=== PATIENT | female | born 1945 | race Caucasian/White ===

== ENCOUNTER 2020-09-29 10:48 | Outpatient (REF) | payer MEDICARE, SELFPAY ==
--- NOTE | ~2020-09-29 | MM_ITS ---
EXAMINATION: MM SCREENING DIGITAL BREAST TOMOSYNTHESIS, BILATERAL CLINICAL INFORMATION: Screening. Asymptomatic. The lifetime risk of breast cancer based on the Tyrer-Cuzick Model is 3%. COMPARISON: Mammography: 06/23/2019, 02/15/2018, 10/12/2016, 05/25/2015 TECHNIQUE: Digital breast tomosynthesis is performed in both the craniocaudal and mediolateral oblique views along with computer-aided detection (CAD). Synthesized 2D images are generated from the tomosynthesis. Additional left MLO view is provided. FINDINGS: There are scattered areas of fibroglandular density (ACR BI-RADS breast composition Category b). There is fine fibronodular parenchymal pattern with stable parenchymal asymmetry upper outer right breast and stable nodule upper outer right breast. No significant mass or developing density or abnormal calcifications. Low right axillary tail nodes stable. Skin contours are smooth. There are no significant changes from prior exams. MM/MM tomosynthesis screening BI IMPRESSION: No significant changes from prior exams. ASSESSMENT: BI-RADS 2: Benign RECOMMENDATION: Routine annual mammography screening. This patient's information was entered into a reminder system with a target due date for their next mammogram.
== END 2020-09-29 10:49 | disposition home or self-care (01) ==
LOC: HO.MAMMO 10:48
PROVIDERS: PCP Internal Medicine; Visit Provider Internal Medicine
DX: Z12.31 Encounter for screening mammogram for malignant neoplasm of breast (principal)
CPT/HCPCS: 77063; 77067

== ENCOUNTER 2021-10-24 11:48 | Outpatient (REF) | payer MEDICARE, SELFPAY ==
--- NOTE | ~2021-10-24 | MM_ITS ---
EXAMINATION: MM SCREENING DIGITAL BREAST TOMOSYNTHESIS, BILATERAL CLINICAL INFORMATION: Screening. Asymptomatic. The lifetime risk of breast cancer based on the Tyrer-Cuzick Model is 2.4%. COMPARISON: Mammography: September 29, 2020 and studies dating back to April 28, 2014 TECHNIQUE: Digital breast tomosynthesis is performed in both the craniocaudal and mediolateral oblique views along with computer-aided detection (CAD). Synthesized 2D images are generated from the tomosynthesis. FINDINGS: There are scattered areas of fibroglandular density (ACR BI-RADS breast composition Category b). There are no significant masses, abnormal calcifications, or other abnormalities. MM/MM tomosynthesis screening BI IMPRESSION: There are no significant changes from prior study. ASSESSMENT: BI-RADS 1: Negative RECOMMENDATION: Routine annual mammography screening. This patient's information was entered into a reminder system with a target due date for their next mammogram.
== END 2021-10-24 11:49 | disposition home or self-care (01) ==
LOC: HO.MAMMO 11:48
PROVIDERS: PCP Internal Medicine; Visit Provider Internal Medicine
DX: Z12.31 Encounter for screening mammogram for malignant neoplasm of breast (principal)
CPT/HCPCS: 77063; 77067

== ENCOUNTER 2022-10-26 10:32 | Outpatient (REF) | payer MEDICARE, SELFPAY ==
--- NOTE | ~2022-10-26 | MM_ITS ---
EXAMINATION: MM SCREENING DIGITAL BREAST TOMOSYNTHESIS, BILATERAL CLINICAL INFORMATION: Screening. Asymptomatic. The lifetime risk of breast cancer based on the Tyrer-Cuzick Model is 2%. COMPARISON: Mammography: 10/24/2021, 09/29/2020, 06/23/2019, 02/15/2018, 10/13/1916, 05/25/2015 TECHNIQUE: Digital breast tomosynthesis is performed in both the craniocaudal and mediolateral oblique views along with computer-aided detection (CAD). Synthesized 2D images are generated from the tomosynthesis. FINDINGS: There are scattered areas of fibroglandular density (ACR BI-RADS breast composition Category b). There are no significant masses, abnormal calcifications, or other abnormalities. Parenchymal pattern is similar to prior studies and there is no developing density or architectural abnormality. Again, there is fine fibronodular pattern with stable nodular asymmetry mid upper outer right breast. Low right axillary tail nodes stable. The axilla and skin contours are unremarkable. No significant changes from prior studies. MM/MM tomosynthesis screening BI IMPRESSION: No mammographic evidence of malignancy. ASSESSMENT: BI-RADS 2: Benign RECOMMENDATION: Routine annual mammography screening. This patient's information was entered into a reminder system with a target due date for their next mammogram.
== END 2022-10-26 10:33 | disposition home or self-care (01) ==
LOC: HO.MAMMO 10:32
PROVIDERS: PCP Internal Medicine; Visit Provider Internal Medicine
DX: Z12.31 Encounter for screening mammogram for malignant neoplasm of breast (principal)
CPT/HCPCS: 77063; 77067

== ENCOUNTER 2023-11-01 10:32 | Outpatient (REF) | payer MEDICARE, SELFPAY | END 2023-11-01 10:33 | disposition home or self-care (01) | LOC: HO.MAMMO 10:32 | PROVIDERS: Visit Provider Internal Medicine | DX: Z12.31 Encounter for screening mammogram for malignant neoplasm of breast (principal) | CPT/HCPCS: 77063; 77067 ==

== ENCOUNTER → 2023-11-01 10:45 | Outpatient (BNV) | payer MEDICARE, SELFPAY | PROVIDERS: Visit Provider Radiology Diagnostic Radiology | DX: Z12.31 Encounter for screening mammogram for malignant neoplasm of breast (principal) | CPT/HCPCS: 77063; 77067 ==

== ENCOUNTER 2024-09-24 10:48 | Outpatient (REF) | payer MEDICARE, SELFPAY ==
--- NOTE | ~2024-09-24 | MM_ITS ---
EXAMINATION: DXA BONE DENSITY AXIAL HISTORY: POSTMENOPAUSAL ESTROGEN DEFICIENCY TECHNIQUE: GiveForward Dual energy absorptiometry (DEXA) of the lumbar spine, total left hip, and femoral neck was performed. COMPARISON: Comparison is made with the prior examination dated 10/03/2018. FINDINGS: The bone mineral density of the lumbar spine is 0.992 with a T-score of -1.6, and a Z-score of 0.0. This is indicative of osteopenia. This represents a BMD change of -2.4% compared to the prior exam. This is not statistically significant. The bone mineral density of the left total hip is 1.065 with a T-score of 0.5, and a Z-score of 2.2. This is indicative of normal bone mineral density. This represents a BMD change of -4.0% compared to the prior exam. This is statistically significant. The bone mineral density of the left femoral neck is 0.965 with a T-score of -0.5, and a Z-score of 1.4. This is indicative of normal bone mineral density. This represents a BMD change of 5.8% compared to the prior exam. FRACTURE RISK: The FRAX index suggests a ten year probability of major osteoporotic fracture of 9.4%, and of hip fracture 1.3%. MM/XR DEXA axial skeleton IMPRESSION: Based on bone mineral density, and according to World Health Organization (WHO) criteria, the diagnosis is consistent with osteopenia. All bone density values are in grams per centimeter squared (g/cm2). Statistically, 68% of repeat scans fall within 1 SD (+/- 0.010 g/cm2 for AP spine L1-L4) and 1 SD (+/- 0.012 g/cm2 for femur total) FRAX is a trademark of the [employer]'s [employer] Met[employer], a World Health Organization (WHO) Collaborating Center. Electronically signed by: Jamal Paulson MD 09/24/2024 11:32 AM EDT
--- OUTSIDE RECORDS SUMMARY | 2024-09-24 12:24 | XMS_ITS | Encounter Summary ---
Author Organization [facility] Address [address] [facility] [address] [place] [phone] Phone Care Team Providers Care Airport Screener Name Role Phone Ian Dickey MD Unavailable [phone] Ian Dickey MD Unavailable [phone] Ian Dickey MD Primary Care Provider [phone] Encounter Details Date Type Department Care Team (Late st Contact Info) Description 09/24/2024 Orders Only [facility] Internal Medicine [address] [place] [address] Provider, MD Mirta [address] [place], [place] [id number] Social History Tobacco Use Types Packs/Day Years Used Date Smoking Tobacco: Never Smokeless Tobacco: Never Alcohol Use Standard Drinks/Week Comments Not Currently 0 (1 standard drink = 0.6 oz pur e alcohol) in her 20s Education Answer Date Recorded Are you interested in more education? Not on darian e 2022 Are you concerned about learning? Not on file 2022 No 2022 No 2022 Digital Access Answer Date Recorded No 10/22/2022 No 10/22/2022 Reliable internet access at home? Not on file 10/22/2022 Device with a working camera? Not on file Intimate Partner Violence Answer Date R ecorded Denied Basic Needs Not on file 03/25/2024 In the past 12 months have y ou been in a relationship with a person who hurts, threatens, or tries to control you? No 03/25/2024 Worried food would run out Not on file 03/25 In the past 12 months have y ou been in a relationship with a person who hurts, threatens, or tries to control you? No 03/25/2024 Sex and Gender Information Value Date Recorded Sex Assigned at Female 01/25/2020 11:17 AM EDT Gender Identity Female 01/25/2020 11:17 AM EDT Sexual Orientation Straight 01/25/2020 11 :17 AM EDT documented as of this encounter Plan of Treatment Upcoming Encounters Date Type Department Care Team (Late st Contact Info) Description 10/05/2024 1:00 PM EDT Appointment [facility] Internal Medicine [address] [place] [address] Ian Dickey MD [address] [place] [phone] [email or web address] documented as of this encounter Procedures Procedure Name Priority Date/Time Associated Diagnosis Comments MAMMOGRAPHY Routine 09/24/2024 11:56 AM EDT documented in this encounter Results * MAMMOGRAPHY FOR RESULT ENTRY ONLY (09/24/2024 11:56 AM EDT) Historical Provider MD ESTELLE Jolly documented in this encounter Visit Diagnoses Not on filedocumented in this encounter Additional Health Concerns Assessment Noted Time PHQ-2 Depression Total Score: 0 03/25/20 24 9:15 PM EDT documented as of this encounter Care Teams Airport Screener Relationship Specialty Start Date End Date Ian Dickey MD [address] [place] [phone] PCP - General Internal Medicine 04/22/17 Ian Dickey MD [address] [place] [address] Insurance Assigned Provider 08/31/23 Ian Dickey MD [address] [place] [address] [email or web address] Historical LMR Provider 03/17/17 documented as of this encounter Additional Source Comments The information contained in this document represents components of the legal health record. It is not the complete legal health record.[facility]
--- OUTSIDE RECORDS SUMMARY | 2024-09-24 12:25 | XMS_ITS | Clinical Summary ---
Author Organization [facility] Address [address] [place] [address] Phone Care Team Providers Care Body Maker Machine Setter Name Role Phone Ian Dickey MD Unavailable [phone] Ian Dickey MD Unavailable [phone] Ian Dickey MD Primary Care Provider [phone] Allergies Active Allergy Reactions Criticality Noted Date Comments 0.9 % Sodium Chloride (Phenol) 09/17 Meperidine Nausea and/or Vomiting 04/22/2017 Sulfa (Sulfonamide Antibiotics) Unknown 04/22/2017 Medications Medication Sig Dispensed Refills Start Date End Date Status amitriptyline (ELAVIL) 25 MG tablet 1 tablet at bedtime Active biotin 1 mg tablet Take 1 mg by mouth daily. Active flaxseed oil Oil Take 1 capsule by mouth daily. Active multivitamin per tablet Take 1 tablet by mouth daily. Active L GASSERI/B BIFIDUM/B LONGUM ([facility] ORAL) Take 1 capsule by mouth daily. Active senna (SENOKOT) 8.6 mg tablet Take 1 tablet by mouth daily as needed. Active cyanocobalamin, vitamin B-12, 1000 MCG tablet Take 1,000 mcg by mouth daily. Active ascorbic acid, vitamin C, (VITAMIN C) 500 MG tablet Take 500 mg by mouth daily. Active DULoxetine (CYMBALTA) 30 MG capsule Take 30 mg by mouth daily. Taken along with 60 mg (total 90 mg daily). Active LORazepam (ATIVAN) 0.5 MG tablet Take 0.5 mg by mouth daily as needed for anxiety. 07/17/2019 Active zolpidem (AMBIEN) 10 mg tablet Take 10 mg by mouth nightly at bedtime. 07/16/2019 Active DULoxetine (CYMBALTA) 60 MG capsule Take 1 capsule by mouth daily. Taken along with 30 mg (total 90 mg daily). 11/04/2019 Active propranoloL (INDERAL LA) 120 mg 24 hr capsule Take 120 mg by mouth daily. Active omega-3 acid ethyl esters (LOVAZA) 1 gram capsuleIndications :Hyperglyceridemia Take 2 capsules (2 g total) by mouth 2 (two) times a day. 120 capsule 5 09/23/2022 Active Additional Information Patient not taking.Reported on 09/20/2023 acetaminophen (TYLENOL EX STR RAPID RELEASE ORAL) Take 2 tablets by mouth every other day. Alternating with tylenol arthritis Active lansoprazole (PREVACID) 30 MG capsuleIndications :Gastroesophageal reflux disease without esophagitis take 1 capsule by mouth twice daily 180 capsule 3 02/11/2024 Active acetaminophen (TYLENOL) 650 MG CR tablet Take 1,300 mg by mouth every other day. Alternating with rapid release tylenol Active icosapent ethyL (VASCEPA) 1 gram capsuleIndications :Hyperglyceridemia Take 2 capsules (2 g total) by mouth 2 (two) times a day with meals. 360 capsule 3 08/24/2024 Active Active Problems Problem Noted Date Diagnosed Date MS (multiple sclerosis) 08/01/2018 Overview (08/01/2018): Dr. Stephen S/P YAMILET-BSO 08/01/2018 Constipation 04/22/2017 Gastroesophageal reflux disease 04/22/2017 Hyperlipidemia 04/22/2017 Migraine without aura and wi thout status migrainosus, not intractable 04/22/2017 Nocturia 04/22/2017 Encounters Date Type Department Care Team Description 09/24/2024 Orders Only [facility] Internal Medicine [address] [facility] [place] [address] ProviderMirta MD 09/18/2024 Telephone [facility] Internal Medicine [address] [facility] [place] [address] Ian Dickey MD New bone density order 08/24/2024 Telephone [facility] Internal Medicine [address] [place] [address] Ian Dickey MD Medication Prior Authorization (VASCEPA 1 gram capsule) from Last 3 Months Immunizations Name Administration Dates Next Due COVID-19 (Pre-03/18) Suresh Vaccine, rS-Ad26, PF 08/04/2020 COVID-19 (Pre-03/18) Pfizer Vaccine, mRNA, PF 03/23/2021 Influenza High-Dose Quadriva lent Preservative Free IM 02/01/2022,01/12/2020 Influenza High-Dose Trivalen t Preservative Free IM 02/11/2024,01/20/2018,02/05/2017,01/23,02/18/2015 Influenza Quadrivalent Adjuv anted Preservative Free IM 02/20/2023,02/02/2021 Influenza Trivalent Adjuvant ed Preservative free IM 02/10/2019 Influenza Trivalent w/ Preservative IM 7 Influenza, Unspecified Formulation 02/10,02/14/2011,02/22/2010,03/03 Pneumococcal conjugate PCV13 08/23/2015 Pneumococcal polysaccharide PPSV23 08/01/2018, RSV Vaccine (monovalent, adjuvanted) 03/06/2023 Td (adult) 5 Lf Tetanus Toxo id, PF, Adsorbed 08/30/2016,04/26/2006 Zoster recombinant 11/03/2019,08/04/2019, 019 Family History Medical History Relation Comments Cancer Brother 1 Alcohol abuse Father Relation Status Comments Brother 1 (Age 50) cancer Brother 2 Alive Brother 3 Alive Father (Age 62) Mother (Age 92) Sister 1 Alive Sister 2 Alive Sister 3 Alive Sister 4 Alive Sister 5 Alive Sister 6 Alive Sister 7 Alive Social History Tobacco Use Types Packs/Day Years Used Date Smoking Tobacco: Never Smokeless Tobacco: Never Tobacco Cessation:Counseling Given: Not Answered Alcohol Use Standard Drinks/Week Comments Not Currently [...] Orientation Straight 01/25/2020 11 :17 AM EDT Last Filed Vital Signs Vital Sign Reading Time Taken Comments Blood Pressure 136/73 03/31/2024 10:52 AM EST Pulse 77 03/31/2024 10:52 AM EST Temperature 36.6 ??C (97.9 ??F) 03/31/2024 10:[address] Respiratory Rate 16 03/31/2024 10:52 AM EST Oxygen Saturation 97% 03/31/2024 10:52 AM EST Inhaled Oxygen Concentration - - Weight 72.4 kg (159 lb 9.6 oz) 03/31/2024 10:52 AM EST Height 158.5 cm (5' 2.4 ) 03/31/2024 10:52 AM ES T Body Mass Index 28.82 03/31/2024 10:52 AM EST Plan of Treatment Upcoming Encounters Date Type Department Care Team (Late st Contact Info) Description 10/05/2024 1:00 PM EDT Appointment [facility] [place] Internal Medicine [address] [place] [address] Ian Dickey MD [address] [place] [address] [email or web address] Health Maintenance Due Date Last Done Comments DEPRESSION SCREENING 03/25/2025 03/25/2024 Adult Td,Tdap Booster 08/30/2026 08/30/2016, 006 LIPID PANEL 09/02/2028 09/03/2023, 11/2022, 05/02/2023, Additional history exists FOLLOW UP BONE DENSITY TESTING 09/18/2029 09/18/2024, 03/31/2024, 09/20/2023, Additional history exists PNEUMOCOCCAL VACCINES (50+ years) Completed 08/01/2018, 08/23/2015, 03/27/2008 HEPATITIS C SCREENING Completed 08/27/2018, 019 ZOSTER VACCINES Completed 11/03/2019, 07/25, 02/10/2019 RSV VACCINE Completed 03/06/2023 COVID-19 VACCINE Completed 02/11/2024, , 02/20/2023, Additional history exists SMOKING STATUS SCREENING (Once After 26 Yrs) Completed 03/31/2024 OSTEOPOROSIS SCREENING INITIAL (ONE-TIME) Completed 09/18/2024, 03/31/2024, 09/20/2023, Additional history exists HEPATITIS A VACCINES Aged Out No long er eligible based on patient's age to complete this topic HIB VACCINES Aged Out No longer eligi ble based on patient's age to complete this topic MENINGOCOCCAL VACCINES (ACWY) Aged Out No longer eligible based on patient's age to complete this topic Medical Devices Not on file Procedures Procedure Name Priority Date/Time Associated Diagnosis Comments HM MAMMOGRAPHY Routine 09/24/2024 11:56 AM EDT BD DXA SCREENING Routine 09/18/2024 7:32 PM EDT Postmenopausal estrogen deficiency LIPID PANEL Routine 09/03/2023 11:22 AM EDT Hyperglyceridemia HEPATITIS C ANTIBODY, QUALITATIVE Routine 08/27/2018 10:28 AM EDT Need for hepatitis C screening test from Last 3 Months or Most Recently Relevant to Health Maintenance Results * HM MAMMOGRAPHY FOR RESULT ENTRY ONLY (09/24/2024 11:56 AM EDT) Historical Provider MD ESTELLE Jolly * (ABNORMAL) Lipid panel (09/03/2023 11:22 AM EDT) HDL 36 mg/dL [facility] Comment: ? Interpretation <40 mg/dL: Low HDL cholesterol (major risk factor for CHD) Greater than or equal to 60 mg/dL: High HDL cholesterol ( negative risk factor for CHD) HDL - cholesterol is affected by a number of factors, e.g. smoking, excerise, hormones, sex and age. CHOLESTEROL 269(H) 0 - 240 mg/dL [facility] TRIGLYCERIDES 553(H) 30 - 160 mg/dL [facility] LDL NOT CALCULATED 50 - 129 mg/dL [facility] Comment: Unable to calculate due to elevated TRIG of greater than 400. A measured LDL will be performed. CARDIAC RISK RATIO 7.5(H) 3.3 - 4.4 [facility] Blood 09/03/2023 11:2 2 AM EDT 09/03/2023 11:23 AM EDT Ian Dickey MD LAB BLOOD ORDERABLES Performing Organization Address [facility] Co de Phone Number [address] [address] * DXA Monitoring (10/03/2018) Anatomical Region Laterality Modality Bone Density Bone Density Ian Dickey MD IMG BD BONE DENSITY DEXA * Hepatitis C antibody, qualitative (08/27/2018 10:28 AM EDT) HCV Negative Negative [facility] Comment: This is a screening test and should be confirmed with molecular testing Blood 08/27/2018 10:2 8 AM EDT 08/27/2018 10:32 AM EDT Ian Dickey MD LAB BLOOD ORDERABLES Performing Organization Address [facility] Co de Phone Number [address] [address] from Last 3 Months or Most Recently Relevant to Health Maintenance Care Teams Body Maker Machine Setter Relationship Specialty Start Date End Date Ian Dickey MD [address] [place] [id number] [email or web address] PCP - General Internal Medicine 04/22/17 Ian Dickey MD [address] [place] [address] [email or web address] Insurance Assigned Provider 08/31/23 Ian Dickey MD [address] [place] [address] [email or web address] Historical LMR Provider 03/17/17 Additional Source Comments The information contained in this document represents components of the legal health record. It is not the complete legal health record.[facility]
--- OUTSIDE RECORDS SUMMARY | 2024-09-24 12:25 | XMS_ITS | Encounter Summary ---
Author Organization [facility] Address [address] [address] Phone Care Team Providers Care Surgical First Assistant Name Role Phone Ian Dickey MD Unavailable [phone] Ian Dickey MD Unavailable [phone] Ian Dickey MD Primary Care Provider [phone] Encounter Details Date Type Department Care Team (Late st Contact Info) Description 12/16/2023 Transcribe Orders [facility] Specimen Processing [address] [place] [address] Ian Dickey MD [address] [place] [address] [email or web address] Social History Tobacco Use Types Packs/Day Years [...] with a working camera? Not on file Sex and Gender Information Value Date Recorded Sex Assigned at Female 01/25/2020 11:17 AM EDT Gender Identity Female 01/25/2020 11:17 AM EDT Sexual Orientation Straight 01/25/2020 11 :17 AM EDT documented as of this encounter Plan of Treatment Upcoming Encounters Date Type Department Care Team (Late st Contact Info) Description 10/05/2024 1:00 PM EDT Appointment [facility] Internal Medicine [address] [place] [address] Ian Dickey MD [address] [place] [address] documented as of this encounter Visit Diagnoses Not on filedocumented in this encounter Additional Health Concerns Assessment Noted Time PHQ-2 Depression Total Score: 0 03/14/20 23 6:48 PM EDT documented as of this encounter Care Teams Surgical First Assistant Relationship Specialty Start Date End Date Ian Dickey MD [address] [place] [address] PCP - General Internal Medicine 04/22/17 Ian Dickey MD [address] [place] [address] Insurance Assigned Provider 08/31/23 Ian Dickey MD [address] [place] [address] Historical LMR Provider 03/17/17 documented as of this encounter Additional Source Comments The information contained in this document represents components of the legal health record. It is not the complete legal health record.[facility]
== END 2024-09-24 10:49 | disposition home or self-care (01) ==
LOC: HO.MAMMO 10:48
PROVIDERS: PCP Internal Medicine; Visit Provider Internal Medicine
DX: Z13.820 Encounter for screening for osteoporosis (principal); Z78.0 Asymptomatic menopausal state
CPT/HCPCS: 77080

== ENCOUNTER → 2024-09-24 11:00 | Outpatient (BNV) | payer MEDICARE, SELFPAY | PROVIDERS: PCP Internal Medicine; Visit Provider Radiology Diagnostic Radiology | DX: E28.39 Other primary ovarian failure (principal) | CPT/HCPCS: 77080 ==

== ENCOUNTER 2024-10-20 13:40 | Outpatient (REF) | payer MEDICARE, SELFPAY ==
--- NOTE | ~2024-10-20 | XR_ITS ---
EXAMINATION: XR HIP, RIGHT CLINICAL INFORMATION: arthritis right hip COMPARISON: None available. TECHNIQUE: Two views of the right hip. FINDINGS: No fracture, dislocation, or suspicious bone lesion. There is normal alignment. There is moderate osteoarthritis within the right hip joint, with subcapital spurring, axial joint space narrowing, superolateral acetabular spurring, and mild subchondral sclerosis and cystic changes. There is mild spurring of the greater trochanter. Soft tissues demonstrate vascular calcifications but are otherwise normal. XR/XR hip RT min 2V IMPRESSION: 1. Moderate osteoarthrosis right hip joint. No acute findings. Electronically signed by: Jalen Han MD 10/20/2024 03:48 PM EDT
== END 2024-10-20 13:41 | disposition home or self-care (01) ==
LOC: HO.XRAY 13:40
PROVIDERS: PCP Internal Medicine; Visit Provider Psychiatry & Neurology Neurology
DX: M19.90 Unspecified osteoarthritis, unspecified site (principal)
CPT/HCPCS: 73502

== ENCOUNTER → 2024-10-20 13:50 | Outpatient (BNV) | payer MEDICARE, SELFPAY | PROVIDERS: PCP Internal Medicine; Visit Provider Radiology Diagnostic Radiology | DX: M16.11 Unilateral primary osteoarthritis, right hip (principal) | CPT/HCPCS: 73502 ==

== ENCOUNTER 2024-11-06 10:06 | Outpatient (REF) | payer MEDICARE, SELFPAY | END 2024-11-06 10:07 | disposition home or self-care (01) | LOC: HO.MAMMO 10:06 | PROVIDERS: PCP Internal Medicine; Visit Provider Internal Medicine | DX: Z12.31 Encounter for screening mammogram for malignant neoplasm of breast (principal) | CPT/HCPCS: 77063; 77067 ==

== ENCOUNTER → 2024-11-06 10:15 | Outpatient (BNV) | payer MEDICARE, SELFPAY | PROVIDERS: PCP Internal Medicine; Visit Provider Internal Medicine | DX: Z12.31 Encounter for screening mammogram for malignant neoplasm of breast (principal) | CPT/HCPCS: 77063; 77067 ==

== ENCOUNTER 2024-12-01 13:23 | Outpatient (AMB) | payer MEDICARE, SELFPAY ==
--- NOTE | 2024-12-01 13:38 | A.OFFVIS_ITS ---
Intake Visit Reasons: MS/ 6 WEEKS Allergies meperidine (From Demerol) Allergy (Verified 11/30/24 17:26) Unknown Sulfa (Sulfonamide Antibiotics) Allergy (Verified 11/30/24 17:26) Unknown Medication List - Last Reconciled 12/01/24 by Tara Stephen MD amitriptyline 25 mg PO BEDTIME duloxetine 30 mg PO DAILY fenofibrate nanocrystallized 145 mg PO DAILY icosapent ethyl 2 grams PO BID lorazepam 0.5 mg PO DAILY propranolol ER 120 mg PO DAILY zolpidem 10 mg PO BEDTIME PRN HPI Comments Details: No relief from Meloxicam. 4-5 months of constant RLE pain from sharp groin pain and buttock going down to foot. No injuries. 10/30/24 MRI LS spine shows L5-S1 right sided HNP with compression of right L5 rootalong with a disc free fragment with cephalad migration. XR right hip show smoderate OA She also has asymptomatic MS. MRI brain shows white matter disease that is probably chronic. Not sure of any enhancement because of artifact. Old MRI not available for comparison.? Left facial twitching happening on and off, few times a week and most often when laying down at night. No pain. She is not sure when facial twitching became more frequent. Few occasional headaches, but no migraines. Chronic low back pain. Having some right leg pain over the last few months which she describes as a nuisance, unsure if pain is radiating down leg from low back. Leg feels weaker. Off balance at times, no falls. Not walking as much. Sleep is okay with medication. Previously was getting infrequent left facial twitching. No pain. LBP acted up after doing lot of house work. No migraine headaches or muscle tension headaches. Not taking any migraine abortive therapy. Has position vertigo that occasionally needs repositioning. No side effects other than slight dry mouth from medication. MRIs in past have shown findings consistent with stable dem yelinating disease. Has not had any clinical symptoms to suggest MS. Last MRI of brain was 06/2007, showed moderate amount of chronic white matter changes which are nonspecific, in deep white matter predominantly in a periventricular distribution. [facility] Medical History (Updated 12/01/24 @ 13:48 by Tara Stephen MD) Diverticulosis Hip arthritis Insomnia Low back pain Depression Multiple sclerosis Migraine headache Surgical History (Updated 11/30/24 @ 17:24 by Macie Woods MA) History of lumbar surgery History of bladder suspension procedure History of hysterectomy Social History (Updated 11/30/24 @ 17:25 by Macie Woods MA) Patient Tobacco Use Status: Never used Tobacco Physical Exam Neuro Other: Neurological: Abnormal neurological findings:??none.?Mental Status:??alert and oriented X 3,?Normal attention, orientation, memory and affect.?Cranial Nerves:??Pupils are equal, round and reactive to light. Fundoscopy shows normal disc bilaterally. External occular muscles are intact. Visual farr are full, no ptosis. Face is symmetrical, no facial weakness or droop. Facial sensations are normal. Tongue protrudes in midline. Palate elevates symmetrically. Shoulder shrugging is normal..?Motor Examination:??Normal muscle tone, bulk and strength,?No atrophy or fasciculations,?No drift of the extended upper extremities,?Deep tendon reflexes are 2+?,?Plantars are flexor?.?Straight Leg Raising:??90 degrees.?Sensory Exam:??Normal light touch, temperature, pinprick, vibration and joint-position sensations?,?Rhomberg sign is absent.?Coordination:??no ataxia,?no titubation,?auxmup-gi-umda, asjg-fpqu-krem test and rapid alternating movements were normal.?Gait Exam:??Within normal limits.?Cerebellar Signs:??Wokuwa-ko-bczh and fdcg-tm-rlki is normal,?no dysdiadochokinesia?.?Extrapyramidal System:??No tremor, rigidity with normal facial expressions,?No bradykinesia, no bradyphrenia. Normal arm swing and posture. No propulsion or retropulsion.?Speech:??Normal,?no dysphasia or dysarthria..? General Examination: GENERAL APPEARANCE:??normal,?in no acute distress.?HEART:??S1, S2 normal,?no murmurs.?LUNGS:??clear anteriorly and posteriorly.?MUSCULOSKELETAL:??normal.?EXTREMITIES:??no edema.?PSYCH:??alert, oriented,?cognitive function intact,?cooperative with exam.? Mini Mental Status Exam: Level of Consciousness:??Alert.?Orientation:??Knows correct year, month, date, day and season,?Knows correct city, county and state. Knows correct location and floor.?Registration:??Able to register 3 objects.?Attention:??Serial 7's performed accurately.?Recall:??Able to recall 3 out of 3 objects.?Lang uage:??Normal spontaneous speech, fluency, repetition,naming, comprehension, reading and writing.?Total Score:??30/30.? Assessment & Plan Assessment & Plan (1) Lumbar disc herniation with radiculopathy: Code(s): M51.16 - Intervertebral disc disorders with radiculopathy, lumbar region Category: Medical Plan: Refer to Neurosurgery (2) Migraine headache: Comment: Continue current meds Code(s): G43.909 - Migraine, unspecified, not intractable, without status migrainosus Category: Medical (3) Multiple sclerosis: Code(s): G35 - Multiple sclerosis Category: Medical Plan Neurosurgical referral. Orders: Referrals Neurosurgery Referral M51.16 - Intervertebral disc disorders with radiculopathy, lumbar region Coding Level of Care Code Est Pt Level 4 (01696) Diagnoses Lumbar disc herniation with radiculopathy M51.16 Migraine headache G43.909 Multiple sclerosis G35
== END 2024-12-01 13:55 | disposition home or self-care (01) ==
LOC: HO.HSM 13:23
PROVIDERS: PCP Internal Medicine; Visit Provider Psychiatry & Neurology Neurology
DX: M51.16 Intervertebral disc disorders with radiculopathy, lumbar region (principal); G43.909 Migraine, unspecified, not intractable, without status migrainosus; G35 Multiple sclerosis
CPT/HCPCS: 99214

== ENCOUNTER → 2024-12-01 13:23 | Outpatient (BNVA) | payer MEDICARE, SELFPAY | PROVIDERS: PCP Internal Medicine; Visit Provider Psychiatry & Neurology Neurology | DX: M51.16 Intervertebral disc disorders with radiculopathy, lumbar region (principal); G35 Multiple sclerosis; G43.909 Migraine, unspecified, not intractable, without status migrainosus; Z79.899 Other long term (current) drug therapy | CPT/HCPCS: 99212 ==

== ENCOUNTER 2024-12-11 10:56 | Outpatient (AMB) | payer MEDICARE, SELFPAY ==
[2024-12-11 11:07] VITALS: BMI 26.2
--- NOTE | 2024-12-11 11:07 | A.SPINEOV_ITS ---
Vital Signs 12/11/24 11:07 Height 5 ft 3.5 in Weight 150 lb BMI 26.2 Intake Visit Reasons: radiculopathy- lumbar Intake Note: Mrs. Romano is here today c/o low back pain that radiates down the right leg. [employer] Required: No Allergies meperidine (From Demerol) Allergy (Verified 12/11/24 11:08) Unknown Sulfa (Sulfonamide Antibiotics) Allergy (Verified 12/11/24 11:08) Unknown Physical Exam Vital Signs: BMI result Body Mass Index 26.2 Assessment & Plan Assessment & Plan (1) Lumbar disc herniation with radiculopathy: Code(s): M51.16 - Intervertebral disc disorders with radiculopathy, lumbar region Category: Medical Plan Dear Dr Stephen, Thank you for referring Mrs Romano to our office today. She is a very nice 79-year-old patient of yours that has MS, previous history of L4-5 surgery, who has had pain going from her low back into her right buttock down her right leg into her calf and foot for the last 6 months or more. It initially started as groin pain but then escalated in evolved into a true lumbar radiculopathy. She trialed various things such as meloxicam, activity modifications, lifestyle modifications as well as aspirin, Tylenol without any effect. The pain has only been escalating. It is aggravated with standing and walking but does not necessarily go away when she sits down. You did a lumbar MRI in her and it showed a herniated disc on the right at L5-S1. She is referred today for evaluation. Thus far she has not had any physical therapy, chiropractic, corti sone injections, acupuncture etc.. PMH: History of MS which is more less stable without any need for medication at this point. No history of any significant cardiopulmonary disease, renal or liver issues. She did have a colon resection quite a long time ago secondary to diverticulitis. She also had previous back surgery at L4-5 with good success. History of reflux. Social hx: Does not smoke, drink use any recreational drugs Medications: Tylenol, meloxicam, aspirin 325 for pain control, duloxetine, zolpidem, propranolol, lansoprazole and multiple vitamins Allergies: Sulfa and Demerol Physical exam: Awake alert oriented, uncomfortable, has hard time walking down the hallway with antalgic gait, strength reveals mild weakness of her right tibialis but other than that strength is full. Positive straight leg raise at 20-30 degrees. Well-healed incision on her low back. Reflexes otherwise normal with the exception of the right Achilles which is diminished. Imaging review: Lumbar MRI done at [facility] shows postsurgical changes at L4-5 with evidence of decompression, L5-S1 there is a small subtle disc herniation from the disc which has migrated cranially and tucked itself up right next to the foramen and the L5 nerve root. Impression: 79-year-old female with remote history of L4-5 surgery many years ago, presents with a right L5 radiculopathy secondary to herniated disc at L5-S1 which is tucked itself right into the foramen compressing the right L5 nerve root. It is oriented medially enough that Dr. Leone thinks we can do a simple right L5-S1 microdiskectomy. We quote success rate at 90%. We obviously discuss the fact that there other conservative measures we can do like physical therapy and injections, but she has had the pain now for more than 6 months so we do not suspect this is going to just resolve on its own anytime soon. The patient's activity level is a bare minimum at this point and she is in pain all day long with no relief. We have tentatively scheduled her for microdiskectomy on January 21. I did call her in a prescription for tramadol to see if we can help her with some of the pain. The patient was given risk and benefits of surgery including but not limited to infection, hematoma, nerve injury, durotomy, weakness, bowel/bladder injury, persistent pain, recurrent disc herniation. We also discussed the option to continue with conservative treatment and patient wishes to proceed with surgery. They are aware they should stop NSAIDs 7 days prior to surgery. All questions were answered to the best of our ability. If there is anything about this patients medical history that we have overlooked or concerns you have about us proceeding with surgery we would appreciate any input you can offer Thank you for allowing us to care for your patient. The total time spent with this visit with this patient was 45 minutes reviewing history, physical exam, lumbar imaging review, and implementation of treatment plan or further diagnostic testing Gigi Leone MD,PhD [facility] Medications: New tramadol 50 mg PO Q8H PRN 20 tabs 0RF pain Coding Level of Care Code New Pt Level 4 (72227) Diagnoses Lumbar disc herniation with radiculopathy M51.16
--- OUTSIDE RECORDS SUMMARY | 2024-12-11 11:31 | XMS_ITS | Clinical Summary ---
Author Organization [facility] Address [address] [place] [address] Phone Care Team Providers Care Director Export Name Role Phone Ian Dickey MD Unavailable [phone] Ian Dickey MD Unavailable [phone] Ian Dickey MD Primary Care Provider [phone] Allergies Active Allergy Reactions Criticality Noted Date Comments 0.9 % Sodium Chloride (Phenol) 09/17 Meperidine Nausea and/or Vomiting 04/22/2017 Sulfa (Sulfonamide Antibiotics) Unknown 04/22/2017 Medications amitriptyline (ELAVIL) 25 MG tablet 1 tablet at bedtime Active biotin 1 mg tablet Take 1 mg by mouth daily. Active flaxseed oil Oil Take 1 capsule by mouth daily. Active multivitamin per tablet Take 1 tablet by mouth daily. Active L GASSERI/B BIFIDUM/B LONGUM ([facility] ORAL) Take 1 capsule by mouth daily. [...] by mouth daily as needed for anxiety. 0 Active zolpidem (AMBIEN) 10 mg tablet Take 10 mg by mouth nightly at bedtime. 0 Active DULoxetine (CYMBALTA) 60 MG capsule Take 1 capsule by mouth daily. Taken along with 30 mg (total 90 mg daily). 0 Active propranoloL (INDERAL LA) 120 mg 24 hr capsule Take 120 mg by mouth daily. Active omega-3 acid ethyl esters (LOVAZA) 1 gram capsuleIndicatio ns:Hyperglycerid emia Take 2 capsules (2 g total) by mouth 2 (two) times a day. 120 capsule 5 3 Active Additional Information Patient not taking.Reported on 10/05/2024 acetaminophen (TYLENOL EX STR RAPID RELEASE ORAL) Take 2 tablets by mouth every other day. Alternating with tylenol arthritis Active lansoprazole (PREVACID) 30 MG capsuleIndicatio ns:Gastroesophag eal reflux disease without esophagitis take 1 capsule by mouth twice daily 180 capsule 3 4 Active acetaminophen (TYLENOL) 650 MG CR tablet Take 1,300 mg by mouth every other day. Alternating with rapid release tylenol Active icosapent ethyL (VASCEPA) 1 gram capsuleIndicatio ns:Hyperglycerid emia Take 2 capsules (2 g total) by mouth 2 (two) times a day with meals. 360 capsule 3 5 Active meloxicam (MOBIC) 7.5 MG tabletIndication s:Pain of right hip Take 1 tablet (7.5 mg total) by mouth daily with breakfast. 30 tablet 1 5 Active fenofibrate (TRICOR) 145 MG tabletIndication s:Hyperglyceride raymond Take 1 tablet (145 mg total) by mouth daily. 90 tablet 2 5 Active Active Problems Problem Noted Date Diagnosed Date MS (multiple sclerosis) 08/01/2018 Overview (08/01/2018): Dr. Stephen S/P YAMILET-BSO 08/01/2018 Constipation 04/22/2017 Gastroesophageal reflux disease 04/22/2017 Hyperlipidemia 04/22/2017 Migraine without aura and wi thout status migrainosus, not intractable 04/22/2017 Nocturia 04/22/2017 Encounters Date Type Department Care Team Description 11/16/2024 Orders Only [facility] Internal Medicine [address] [facility] [place] [address] Mirta Sharma MD 11/02/2024 Orders Only [facility] Internal Medicine [address] [facility] [place] [address] Mirta Sharma MD 10/20/2024 Orders Only [facility] Internal [facility] [address] [facility] [place] [address] Mirta Sharma MD 10/18/2024 Refill [facility] Internal Medicine [address] [facility] [place] [address] Ian Dickey MD Results 10/13/2024 Orders Only [facility] Internal [facility] [address] [facility] [place] [address] Mirta Sharma MD 10/05/2024 1:00 PM EDT Office Visit [facility] Internal [facility] [address] [facility] [place] [address] Ian Dickey MD 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 (Primary Dx); Pain of right hip; Sacroiliac joint dysfunction of right side; Hyperglyceridemia 09/30/2024 Documentation [facility] Internal Medicine [address] [facility] [place] [address] Ian Dickey MD 09/28/2024 11:09 AM EDT - 09/28/2024 11:59 PM EDT Hospital Encounter [facility] [address] [facility] [place] [address] Ian Dickey MD Discharge Disposition: Home or Self Care 09/28/2024 Telephone [facility] Internal Medicine [address] [facility] [place] [address] Marika Anaya RN Results 09/24/2024 Orders Only [facility] Internal [facility] [address] [facility] [place] [address] Provider, MD Mirta 09/18/2024 Telephone [facility] [address] [place] [address] Ian Dickey MD New bone density order from Last 3 Months Immunizations Immunization Administration Dates Next Due COVID-19 (Pre-03/18) [employer] Vaccine, rS-Ad26, PF 08/04/2020 COVID-19 (Pre-03/18) Pfizer [...] or tries to control you? No 03/25/2024 Comments No Sex and Gender Information Value Date Recorded Sex Assigned at Female 01/25/2020 11:17 AM EDT Legal Sex Female 4:38 AM EST Gender Identity Female 01/25/2020 11:17 AM EDT Sexual Orientation Straight 01/25/2020 11 :17 AM EDT Last Filed Vital Signs Vital Sign Reading Time Taken Comments Blood Pressure 140/76 10/05/2024 12:52 PM EDT Pulse 73 10/05/2024 12:52 PM EDT Temperature 36.5 C (97.7 F) 10/05/2024 12:52 PM EDT Respiratory Rate 20 10/05/2024 12:52 PM EDT Oxygen Saturation 98% 10/05/2024 12:52 PM EDT Inhaled Oxygen Concentration - - Weight 74.2 kg (163 lb 9.6 oz) 10/05/2024 12:52 PM EDT Height 158.5 cm (5' 2.4 ) 10/05/2024 12:52 PM ED T Body Mass Index 29.54 10/05/2024 12:52 PM EDT Plan of Treatment Upcoming Encounters Date Type Department Care Team (Late st Contact Info) Description 04/07/2025 1:30 PM EST Office Visit [facility] Internal Medicine [address] [place] [address] Ian Dickey MD [address] [place] [address] [email or web address] Health Maintenance Due Date Last Done Comments COVID-19 VACCINE ( season) 2024 02/11/2024, 08/09/2023, 02/20/2023, Additional history exists DEPRESSION SCREENING 03/25/2025 03/25/2024 Adult Td,Tdap Booster 08/30/2026 08/30/2016, 006 FOLLOW UP BONE DENSITY TESTING 09/24/2029 09/24/2024, 09/18/2024, 03/31/2024, Additional history exists LIPID PANEL 09/28/2029 09/28/2024, 01/2024, 05/02/2023, Additional history exists PNEUMOCOCCAL VACCINES (50+ years) Completed 08/01/2018, 08/23/2015, 03/27/2008 HEPATITIS C SCREENING Completed 08/27/2018, 019 ZOSTER VACCINES Completed 11/03/2019, 07/25, 02/10/2019 RSV VACCINE Completed 03/06/2023 OSTEOPOROSIS SCREENING INITIAL (ONE-TIME) Completed 09/24/2024, 09/18/2024, 03/31/2024, Additional history exists SMOKING STATUS SCREENING (Once After 26 Yrs) Completed 10/05/2024 HEPATITIS A VACCINES Aged Out No long er eligible based on patient's age to complete this topic HIB VACCINES Aged Out No longer eligi ble based on patient's age to complete this topic MENINGOCOCCAL VACCINES (ACWY) Aged Out No longer eligible based on patient's age to complete this topic MENINGOCOCCAL VACCINES (B) Aged Out N o longer eligible based on patient's age to complete this topic Medical Devices Not on file Procedures Procedure Name Priority Date/Time Associated Diagnosis Comments HM MAMMOGRAPHY Routine 11/06/2024 1:21 PM EDT OUTSIDE IMAGING Routine 10/30/2024 11:40 AM EDT OUTSIDE XR EXTREMITY LOWER REPORT ONLY Routine 10/20/2024 3:54 PM EDT DIRECT LDL Routine 09/28/2024 11:09 AM EDT COMPREHENSIVE METABOLIC PANEL Routine 09/28/2024 11:09 AM EDT Hyperglyceridemia Gastroesophageal reflux disease, unspecified whether esophagitis present Impaired fasting glucose CBC AND DIFFERENTIAL Routine 09/28/2024 11:09 AM EDT Gastroesophageal reflux disease, unspecified whether esophagitis present LIPID PANEL Routine 09/28/2024 11:09 AM EDT Hyperglyceridemia TSH Routine 09/28/2024 11:09 AM EDT Hyperglyceridemia URINALYSIS Routine 09/28/2024 11:09 AM EDT Impaired fasting glucose Nocturia HEMOGLOBIN A1C Routine 09/28/2024 11:09 AM EDT Impaired fasting glucose HM MAMMOGRAPHY Routine 09/24/2024 11:56 AM EDT OUTSIDE BONE DENSITY SCREENING Routine 09/24/2024 BD DXA SCREENING Routine 09/18/2024 7:32 PM EDT Postmenopausal estrogen deficiency OUTSIDE IMAGING Routine 09/18/2024 10:38 AM EDT HEPATITIS C ANTIBODY, QUALITATIVE Routine 08/27/2018 10:28 AM EDT Need for hepatitis C screening test from Last 3 Months or Most Recently Relevant to Health Maintenance Results * MAMMOGRAPHY FOR RESULT ENTRY ONLY (11/06/2024 1:21 PM EDT) us Historical Provider HEALTH MAINTENANCE Final Result * Outside Imaging Report Only (10/30/2024 11:40 AM EDT) us Historical Provider MD [facility] XR CHEST Final Res ult * Outside XR Extremity Lower Report Only (10/20/2024 3:54 PM EDT) us Historical Provider MD [place] XR LOWER EXTREMITY Fi nal Result * (ABNORMAL) DIRECT LDL (09/28/2024 11:09 AM EDT) Direct LDL 119(H) <100 mg/dL [facility] Comment: (NOTE) Greatly elevated Triglycerides values (>1200 mg/dL) interfere with the dLDL assay. Desirable range <100 mg/dL for primary prevention; <70 mg/dL for patients with CHD or diabetic patients with > or = 2 CHD risk factors. 09/28/2024 11:0 9 AM EDT 09/28/2024 11:44 AM EDT us Ian Dickey MD LAB BLOOD ORDERABLES Final Re sult [facility] [employer] [address] [address] * (ABNORMAL) Comprehensive metabolic panel (09/28/2024 11:09 AM EDT) SODIUM 136 133 - 146 mmol/L [facility] POTASSIUM 4.3 3.3 - 5.1 mmol/L [facility] CHLORIDE 99 96 - 108 mmol/L [facility] CO2 26 21 - 35 mmol/L [facility] BUN 11 6 - 19 mg/dL [facility] CREATININE 0.70 0.5 - 1.5 mg/dL [facility] GLUCOSE 100(H) 70 - 99 mg/dL [facility] ALBUMIN 4.1 3.9 - 4.8 g/dL [facility] TOTAL PROTEIN 6.7 6.5 - 8.0 g/dL [facility] CALCIUM 9.5 8.4 - 10.3 mg/dL [facility] ALKALINE PHOSPHATASE 71 39 - 117 U/L [facility] TOTAL BILIRUBIN 0.7 0.0 - 1.2 mg/dL [facility] AST 24 0 - 37 U/L [facility] ALT 13 0 - 40 U/L [facility] GLOBULIN 2.6 1 - 4.8 g/dL [facility] EGFR 88 >59 mL/min/1.7 3m2 [facility] Comment:Estimated glomerular filtration rate calculated using the CKD-EPI refit equation. ANION GAP 15 10 - 20 mmol/L [facility] Blood 09/28/2024 11:0 9 AM EDT 09/28/2024 11:44 AM EDT us Ian Dickey MD LAB BLOOD ORDERABLES Final Re sult Performing Organization Address [facility] Co de Phone Number [address] [address] * (ABNORMAL) Urinalysis (09/28/2024 11:09 AM EDT) COLOR Yellow Yellow [facility] CLARITY Clear [facility] GLUCOSE Negative Negative [facility] BILI Negative Negative [facility] KETONES Negative Negative [facility] SPECIFIC GRAVITY 1.010 1.005 - 1.030 [facility] BLOOD Trace(A) Negative [facility] PH 6.0 5.0 - 8.0 [facility] Protein-UA Negative Negative [facility] NITRITE Negative Negative [facility] Leukocyte esterase, ur Negative Negative [facility] Urine (Urine) 09/28/2024 11: 09 AM EDT 09/28/2024 11:20 AM EDT us Ian Dickey MD URINE ORDERABLES Final Result Performing Organization Address [facility] Co de Phone Number [address] [address] * (ABNORMAL) CBC and differential (09/28/2024 11:09 AM EDT) WBC 6.78 4.00 - 11.00 K/uL [facility] RBC 4.51 4.00 - 5.20 M/uL [facility] HGB 13.4 12.0 - 16.0 g/dL [facility] HCT 39.1 36.0 - 46.0 % [facility] PLT 219 150 - 450 K/uL [facility] MCV 86.7 80.0 - 100.0 fL [facility] MCH 29.7 27.0 - 31.0 pg [facility] MCHC 34.3 32.0 - 36.0 g/dL [facility] RDW 12.4 11.5 - 14.5 % [facility] MPV 8.7 8.4 - 12.0 fL [facility] NRBC 0.00 0.00 /100 WBCs [facility] ABSOLUTE NRBC 0.00 0.00 K/uL [facility] DIFF METHOD Auto [facility] NEUTS 48.9 48.0 - 76.0 % [facility] LYMPHS 35.4 18.0 - 41.0 % [facility] MONOS 9.1 4.0 - 11.0 % [facility] EOS 5.5(H) 0.0 - 5.0 % [facility] BASOS 0.7 0.0 - 1.5 % [facility] Granulocytes, immature (%) 0.4 0.0 - 0.9 % [facility] ABSOLUTE NEUTS 3.31 1.92 - 7.60 K/uL [facility] ABSOLUTE LYMPHS 2.40 0.72 - 4.10 K/uL [facility] ABSOLUTE MONOS 0.62 0.16 - 1.10 K/uL [facility] ABSOLUTE EOS 0.37 0.00 - 0.50 K/uL [facility] ABSOLUTE BASOS 0.05 0.00 - 0.15 K/uL [facility] Granulocytes, immature 0.03 0.00 - 0.09 K/uL [facility] Blood 09/28/2024 11:0 9 AM EDT 09/28/2024 11:44 AM EDT us Ian Dickey MD LAB BLOOD ORDERABLES Final Re sult Performing Organization Address City/[facility]/ZIP Co de Phone Number [address] [address] * TSH (09/28/2024 11:09 AM EDT) TSH 2.39 0.27 - 4.20 uIU/mL [facility] Blood 09/28/2024 11:0 9 AM EDT 09/28/2024 11:44 AM EDT us Ian Dickey MD LAB BLOOD ORDERABLES Final Re sult [address] [address] * Hemoglobin A1c (09/28/2024 11:09 AM EDT) HEMOGLOBIN A1C 5.4 4.3 - 5.8 % [facility] Blood 09/28/2024 11:0 9 AM EDT 09/28/2024 11:44 AM EDT Ian Dickey MD LAB BLOOD ORDERABLES Final Re sult Performing Organization Address [facility] Co de Phone Number [address] [address] * (ABNORMAL) Lipid panel (09/28/2024 11:09 AM EDT) HDL 37 mg/dL [facility] Comment: Interpretation <40 mg/dL: Low HDL cholesterol (major risk factor for CHD) Greater than or equal to 60 mg/dL: High HDL cholesterol ( negative risk factor for CHD) HDL - cholesterol is affected by a number of factors, e.g. smoking, excerise, hormones, sex and age. CHOLESTEROL 282(H) 0 - 240 mg/dL [facility] TRIGLYCERIDES 506(H) 30 - 160 mg/dL [facility] LDL NOT CALCULATED 50 - 129 mg/dL [facility] Comment: Unable to calculate due to elevated TRIG of greater than 400. A measured LDL will be performed. CARDIAC RISK RATIO 7.6(H) 3.3 - 4.4 [facility] Blood 09/28/2024 11:0 9 AM EDT 09/28/2024 11:44 AM EDT Ian Dickey MD LAB BLOOD ORDERABLES Final Re sult Performing Organization Address City/[facility]/ZIP Co de Phone Number [address] [address] * HM MAMMOGRAPHY FOR RESULT ENTRY ONLY (09/24/2024 11:56 AM EDT) Historical Provider HEALTH MAINTENANCE Final Result * OUTSIDE BONE DENSITY SCREENING (09/24/2024) BONE DENSITY SCREENING - EXTERNAL Osteopenia EXTERNAL NON-INTERFACE D REF LAB Historical Provider HEALTH MAINTENANCE Final Result EXTERNAL NON-INTERFACED REF LAB * Outside Imaging Report Only (09/18/2024 10:38 AM EDT) Result [facility] Historical Provider IMG XR CHEST Final Res ult * Hepatitis C antibody, qualitative (08/27/2018 10:28 AM EDT) HCV Negative Negative [facility] Comment: This is a screening test and should be confirmed with molecular testing Blood 08/27/2018 10:2 8 AM EDT 08/27/2018 10:[address] [facility] Ian Dickey MD LAB BLOOD ORDERABLES Final Re sult Performing Organization Address City/[facility]/ZIP Co de Phone Number [facility] [address] [place] [address] from Last 3 Months or Most Recently Relevant to Health Maintenance Insurance MEDICARE PART A & B (Work) [address] [place] [address] MEDICARE PART A & B (Work) [address] [place] [address] MEDICARE PART A & B (Work) [address] [place] [address] MEDICARE PART A & B (Work) [address] [place] [address] MEDICARE PART A & B (Work) [address] [place] [address] MEDICARE PART A & B (Work) [address] [place] [address] MEDICARE PART A & B MEDICARE PART A & B MEDICARE PART A & B Care Teams Director Export Relationship Specialty Start Date End Date Ian Dickey MD [address] [place] [address] [email or web address] PCP - General Internal Medicine 04/22/17 Ian Dickey MD [address] [place] [address] [email or web address] Insurance Assigned Provider 08/31/23 Ian Dickey MD [address] [place] [address] [email or web address] Historical LMR Provider 03/17/17 Additional Source Comments The information contained in this document represents components of the legal health record. It is not the complete legal health record.[facility]
== END 2024-12-11 12:24 | disposition home or self-care (01) ==
LOC: HO.HNS 10:57
PROVIDERS: PCP Internal Medicine; Referring Provider Psychiatry & Neurology Neurology; Visit Provider Physician Assistant
DX: M51.16 Intervertebral disc disorders with radiculopathy, lumbar region (principal)
CPT/HCPCS: 99204

== ENCOUNTER → 2024-12-11 10:56 | Outpatient (BNVA) | payer MEDICARE, SELFPAY | PROVIDERS: PCP Internal Medicine; Referring Provider Psychiatry & Neurology Neurology; Visit Provider Physician Assistant | DX: M51.16 Intervertebral disc disorders with radiculopathy, lumbar region (principal) | CPT/HCPCS: 99202 ==

== ENCOUNTER 2025-01-28 09:37 | Day surgery (SDC) | payer MEDICARE, SELFPAY ==
--- OUTSIDE RECORDS SUMMARY | 2024-12-30 12:54 | XMS_ITS | Clinical Summary ---
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 Active L GASSERI/B BIFIDUM/B LONGUM ([facility] ORAL) Take 1 [...] Department Care Team Description 11/16/2024 Orders Only [facility] Internal Medicine [address] [facility] [place] [address] Mirta Sharma MD 11/02/2024 Orders Only [facility] Internal Medicine [address] [facility] [place] [address] Mirta Sharma MD 10/20/2024 Orders Only [facility] Internal [facility] [address] [facility] [place] [address] Mirta Sharma MD 10/18/2024 Refill [facility] Internal [facility] [address] [facility] [place], [place] [address] Ian Dickey MD Results 10/13/2024 Orders Only [facility] Internal [facility] [address] [facility] [place] [address] Mirta Sharma MD 10/05/2024 1:00 PM EDT Office Visit [facility] Internal [facility] [address] [facility] [place], [place] [address] Ian Dickey MD 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 (Primary Dx); Pain of right hip; Sacroiliac joint dysfunction of right side; Hyperglyceridemia 09/30/2024 Documentation [facility] Internal Medicine [address] [facility] [place], [place] [address] Ian Dickey MD from Last 3 Months Immunizations Immunization Administration Dates Next Due COVID-19 (Pre-03/18) [employer] Vaccine, rS-Ad26, PF 08/04/2020 COVID-19 (Pre-03/18) Pfizer Vaccine, mRNA, PF 03/23/2021 INFLUENZA, SPLIT VIRUS, TRIV ALENT W/ PRESERVATIVE IM 02/05/2017 Influenza High-Dose Quadriva lent Preservative Free IM 02/01/2022,01/12/2020 Influenza High-Dose Trivalen t Preservative Free IM 02/11/2024,01/20/2018,02/05/2017,01/23,02/18/2015 Influenza Quadrivalent Adjuv anted Preservative Free IM 02/20/2023,02/02/2021 Influenza Trivalent Adjuvant ed Preservative free IM 02/10/2019 Influenza, Unspecified Formulation 02/10,02/14/2011,02/22/2010,03/03 Pneumococcal conjugate PCV13 [...] Description 04/07/2025 1:30 PM EST Office Visit [facility] Internal Medicine [address] [place] [address] Ian Dickey MD [address] [place] [address] [email or web address] Health Maintenance Due Date Last Done Comments COVID-19 VACCINE ( season) 2024 02/11/2024, 08/09/2023, 02/20/2023, Additional history exists DEPRESSION SCREENING 03/25/2025 03/25/2024 Adult Td,Tdap Booster 08/30/2026 08/30/2016, 006 FOLLOW UP BONE DENSITY TESTING 09/24/2029 09/24/2024, 09/18/2024, 03/31/2024, Additional history exists LIPID PANEL 09/28/2029 09/28/2024, 04/0 01/2024, 05/02/2023, Additional history exists PNEUMOCOCCAL VACCINES [...] REPORT ONLY Routine 10/20/2024 3:54 PM EDT LIPID PANEL Routine 09/28/2024 11:09 AM EDT Hyperglyceridemia OUTSIDE BONE DENSITY SCREENING Routine 09/24/2024 HEPATITIS C ANTIBODY, QUALITATIVE Routine 08/27/2018 10:28 AM EDT Need for hepatitis C screening test from Last 3 Months or Most Recently Relevant to Health Maintenance Results * HM MAMMOGRAPHY FOR RESULT ENTRY ONLY (11/06/2024 1:21 PM EDT) us Historical Provider HEALTH MAINTENANCE Final Result * Outside Imaging Report Only (10/30/2024 11:40 AM EDT) us Historical Provider MD [place] XR CHEST Final Res ult * Outside XR Extremity Lower Report Only (10/20/2024 3:54 PM EDT) us Historical Provider MD IMG XR LOWER EXTREMITY Fi nal Result * (ABNORMAL) Lipid panel (09/28/2024 11:09 AM EDT) HDL 37 mg/dL [facility] Comment: Interpretation <40 mg/dL: Low HDL cholesterol (major risk factor for CHD) Greater than or equal to 60 mg/dL: High HDL cholesterol ( negative risk factor for CHD) HDL - cholesterol is affected by a number of factors, e.g. smoking, excerise, hormones, sex and age. CHOLESTEROL 282(H) 0 - 240 mg/dL [facility] TRIGLYCERIDES 506(H) 30 - 160 mg/dL [facility] LDL NOT CALCULATED 50 - 129 mg/dL [facility] Comment: Unable to calculate due to elevated TRIG of greater than 400. A measured LDL will be performed. CARDIAC RISK RATIO 7.6(H) 3.3 - 4.4 [facility] Blood 09/28/2024 11:0 9 AM EDT 09/28/2024 11:44 AM EDT Ian Dickey MD LAB BLOOD ORDERABLES Final Re sult Performing Organization Address City/[facility]/ZIP Co de Phone Number [address] [address] * OUTSIDE BONE DENSITY SCREENING (09/24/2024) Pathologist [facility] BONE DENSITY SCREENING - EXTERNAL Osteopenia EXTERNAL NON-INTERFACE D REF LAB Historical Provider HEALTH MAINTENANCE Final Result EXTERNAL NON-INTERFACED REF LAB * Hepatitis C antibody, qualitative (08/27/2018 10:28 AM EDT) HCV Negative Negative [facility] Comment: This is a screening test and should be confirmed with molecular testing Blood 08/27/2018 10:2 8 AM EDT 08/27/2018 10:32 AM EDT Ian Dickey MD LAB BLOOD ORDERABLES Final Re sult Performing Organization Address City/[facility]/ZIP Co de Phone Number [address] [place] [address] from Last 3 Months or Most Recently Relevant to Health Maintenance Insurance MEDICARE PART A & B MEDICARE PART A & B MEDICARE PART A & B MEDICARE PART A & B MEDICARE PART A & B (Work) [address] [place] [address] MEDICARE PART A & B MEDICARE PART A & B MEDICARE PART A & B (Work) [address] [place] [address] MEDICARE PART A & B Care Teams Iron [employer] Bullet Maker Relationship Specialty Start Date End Date Ian Dickey MD [address] [place] [address] [email or web address] PCP - General Internal Medicine 04/22/17 Ian Dickey MD [address] [place] [address] Insurance Assigned Provider 08/31/23 Ian Dickey MD [address] [place] [address] [email or web address] Historical LMR Provider 03/17/17 Additional Source Comments The information contained in this document represents components of the legal health record. It is not the complete legal health record.[facility]
[2025-01-14 10:04] VITALS: BP 120/61; PULSE 65; RESP 18; O2SAT 97; BMI 27.8
[2025-01-28] VITALS (8 sets, daily range): BP systolic 117–165; BP diastolic 58–75; PULSE 66–79; RESP 15–16; TEMP 36.6–37; O2SAT 95–99; BMI 27.3
--- NOTE | ~2025-01-28 | FL_ITS ---
EXAMINATION: XR FLUOROSCOPY WITH IMAGES CLINICAL INFORMATION: L5-S1 discectomy. COMPARISON: None available. TECHNIQUE: Fluoroscopy provided to: Dr. Leone Fluoroscopy time: 5 seconds DAP: 0.9902 Gycm2 Images: 1 FINDINGS: Solitary spot image of the lumbar spine obtained during L5-S1 discectomy. Please refer to the full operative report for details. FL/FL guidance in OR IMPRESSION: Fluoroscopic guidance. Electronically signed by: Jalen Han MD 01/28/2025 02:34 PM EDT
[2025-01-28] MEDS: Lactated Ringers 1,000 ML 100 ML IVCONT (10:45)
--- NOTE | 2025-01-28 11:32 | MHC.SHP ---
Pre-Procedural Eval Section A - 24 Hr Update-Section A only Date of Service: 01/28/25 The patient is an INPATIENT: No Section B - Complete if H&P > 30 days Chief Complaint: Intervertebral disc disorders with radiculopathy, Details of Present Illness: Right leg pain Allergies: Allergies Allergy/AdvReac Type Severity Reaction Status Date / Time meperidine (From Demerol) Allergy Intermediate Vomiting Verified 01/28/25 10:23 Sulfa (Sulfonamide Allergy Unknown reaction Verified 01/28/25 10:23 Antibiotics) unknown-long ago Review of Systems Sugical H&P ROS: Negative: Constitution, Cardiovascular, Respiratory, Neurological, Psychiatric, Hem-Onc, Allergic/Immunologic, Gastrointestinal, Genitourinary, Musculoskeletal, Integumentary, Endocrine and Eyes/Ears/Nose/Throat Exam Surgical H&P Exam: Normal: HEENT, Normal: Heart, Normal: Lungs, Normal: Extremities, Normal: Abdomen, Normal: Skin and Normal: Neurological (Awake, alert) Plan Diagnosis/Plan: Unchanged I have reviewed the history and physical and performed a pertinent physical examination on my patient. No changes have occurred unless specified. Right L5-S1 microdiskectomy Time Spent With Patient Time: Total time managing care of this patient today ____ minutes.
--- NOTE | 2025-01-28 11:38 | PM.DS ---
DS: Providers Provider Date of Service: 01/28/25 Date of discharge: 01/28/25 Primary care physician: Ian Dickey MD DS: Summary Time Attestation Discharge Coordination Time (in mins): 6 Quality: Safe Use of Opioids Does Pt have an Active Cancer Diagnosis on the Problem List?: No Quality: Stroke Does the patient have a stroke diagnosis?: No Physical Exam Vital Signs: Vital Signs: Last Vital Signs Temp 97.9 F 01/28/25 10:49 Pulse 68 01/28/25 10:49 Resp 15 01/28/25 10:49 BP 148/71 H 01/28/25 10:49 Pulse Ox 95 01/28/25 10:49 O2 Del Method Room Air 01/28/25 10:49 BMI result Body Mass Index 27.3 Discharge Plan Discharge Patient Disposition: Home, Self-Care Referrals: Ian Dickey MD [Primary Care Provider, Internal Medicine] - 1 Week Discharge Medications: New docusate sodium [Colace] 100 mg capsule 100 mg PO BID Qty: 20 0RF oxycodone 5 mg tablet 5 mg PO Q4H PRN (Reason: pain) Qty: 20 0RF Rx Instructions: Partial Fill upon patient request. Continued cyanocobalamin (vitamin B-12) [Vitamin B-12] 100 mcg Tablet 100 mcg PO DAILY calcium carbonate 600 mg calcium (1,500 mg) Tablet 600 mg PO DAILY ascorbic acid (vitamin C) [Vitamin C] 500 mg Tablet 500 mg PO DAILY lansoprazole 30 mg capsule,delayed release(DR/EC) 30 mg PO QAM cahivmhsttvi-kjnepsaa-kvtsbl Tablet 1 tab PO DAILY glucosamine-chondroitin 250-200 mg Tablet 2 tab PO QAM Rx Instructions: give after food/meal duloxetine 60 mg capsule,delayed release(DR/EC) 60 mg PO QAM Rx Instructions: takes w/30 mg dose biotin 5 mg Tablet 5 mg PO DAILY Probiotic 15 billion cell Capsule 1 cap PO DAILY amitriptyline 25 mg tablet 25 mg PO BEDTIME lorazepam 0.5 mg tablet 0.5 mg PO QAM propranolol 120 mg capsule,extended release 24 hr 120 mg PO QAM zolpidem 10 mg tablet 10 mg PO BEDTIME PRN (Reason: Insomnia) duloxetine 30 mg capsule,delayed release(DR/EC) 30 mg PO QAM Rx Instructions: takes w/60 mg dose fenofibrate nanocrystallized 145 mg tablet 145 mg PO QAM Held icosapent ethyl 1 gram capsule 2 g PO BID Hold Instructions: Resume on 02/04/25. You may resume 1 week after surgery Discharge Orders: Discharge Order (Routine); Ordered 01/28/25 Ordered By: Gigi Blunt Diet: Advance to usual diet Activity on Discharge: As tolerated Activity Restrictions/Additional Instructions: After your spinal surgery we ask you to observe the following restrictions/guidelines: Activity: It is normal to feel some discomfort as you increase your activity, but that will improve with time. We ask you avoid heavy lifting or acitivities that cause pain. As a general rule, 8lbs is a safe limit for lifting right after surgery. Walk as much as you feel comfortable but not to exhaustion. You will feel extra tired the first few days after surgery. Stay well hydrated. It is OK to walk up and down stairs You may return to driving when you are off narcotics (such as vicodin, oxycodone, dilaudid, etc), and you are back to normal functional capacity. If you have any concerns please check with office before driving. Return to work is specific to each patient and each surgery, so please speak with your doctor/PA at first follow up. Please bring paperwork such as FMLA at that time if you need it filled out. Medications: For optimum pain control, it is best to start with a combination of 500 mg of Tylenol every 4 hours with 600 mg of Motrin every 8 hours, and use narcotics as needed in between for breakthrough pain. We will give you a short supply of narcotics after surgery (usually one weeks worth). If you need more please call the office but do not use more than prescribed. You will need to give our office 48 hours notice if you need narcotics refilled and we do not fill narcotics on weekends or evenings. If you are on a narcotic, it is a good idea to take a stool softener such as colace or senna to avoid constipation If you take blood thinner such as aspirin, Plavix, Coumadin, Effient, Eliquis etc for conditions such as Afib, DVT, Pulmonary embolus, coronary disease, stents etc please speak with your surgeon about specific details as to when you can resume these medications. Follow up: Please call the office, , after surgery to arrange a 3 week follow up for wound check. Wound Care: You may remove your dressing on the first day after surgery. ?You may ?leave open to air. Please do not remove the steri strips underneath. they will fall off on their own in one week. IT IS NORMAL FOR THE WOUND TO OOZE OR BE BLOODY FOR A FEW DAYS AFTER SURGERY. ?IF THIS HAPPENS JUST PLACE NEW DRESSING OVER IT TO AVOID STAINING CLOTHES. You may shower on post op day # 1 We ask that you do not let the water soak the wound. If it does get wet, just towel dry lightly. Please do not scrub your incision or place any type of chemical/ointment on the wound. No tub baths, pools or jacuzzis for one month. If you have any leaking or redness from your wound, or fevers, please call office Print Language: Faroese
--- NOTE | 2025-01-28 11:50 | HO.ANESPROP2 ---
Documented by User: Razia Cabrera NP 01/27/25 15:17 HPI - Anesthesia Eval Consult details Narrative: 79yo F for Right L5-S1 Microdiscectomy, 01/28/25 No recent illness No CP/SOB with minimal activity d/t pain - no limitations with housework, yard work, grocery shopping MS: No rx, asymptomatic GERD: ppi controls Migraines: beta graeme - rare PMFSH Active Problems Active Problems: All Active Problems Lumbar disc herniation with radiculopathy (Acute) Multiple sclerosis (Acute) Migraine headache (Acute) Past Medical History Medical History Elevated cholesterol Arthritis GERD (gastroesophageal reflux disease) Diverticulosis Hip arthritis Insomnia Low back pain Depression Multiple sclerosis Migraine headache Family History Family history of problems with anesthesia: No Surgical History Surgical History H/O colonoscopy History of lumbar surgery History of bladder suspension procedure History of hysterectomy History of Problems with Anesthesia: No Social History Social History (Updated 11/30/24 @ 17:25 by Macie Woods MA) Are you a primary nurse care manager to a significant other at home: No Do you presently have visiting nurse or other home services: No Comment: occasional mild loss of balance due to MS Patient Tobacco Use Status: Never used Tobacco Use of substances other than those prescribed or required for medical reasons: No Have you been hit, kicked, punched, or otherwise hurt by someone within the past year? If so, by whom?: No Spiritual Healthcare Practices: no Temple Healthcare Practices: no Cultural Healthcare Practices: no Are you DNR?: No Advance Directives on File: No FDLMP: n/a Meds Allergies Allergy/AdvReac Type Severity Reaction Status Date / Time meperidine (From Demerol) Allergy Intermediate Vomiting Verified 01/28/25 10:23 Sulfa (Sulfonamide Allergy Unknown reaction Verified 01/28/25 10:23 Antibiotics) unknown-long ago Home Medications ?Medication ?Instructions ?Recorded ?Confirmed ?Last Taken ?Type amitriptyline 25 mg tablet 25 mg PO BEDTIME 11/30/24 01/14/25 Unknown History duloxetine 30 mg capsule,delayed 30 mg PO QAM 11/30/24 01/14/25 Unknown History release fenofibrate nanocrystallized 145 145 mg PO QAM 11/30/24 01/14/25 Unknown History mg tablet icosapent ethyl 1 gram capsule 2 g PO BID 11/30/24 01/14/25 Unknown History Held on 01/28/25. Instructions: Resume on 02/04/25. You may resume 1 week after surgery lorazepam 0.5 mg tablet 0.5 mg PO QAM 11/30/24 01/14/25 Unknown History propranolol 120 mg capsule,24 120 mg PO QAM migraine 11/30/24 01/14/25 Unknown History hr,extended release zolpidem 10 mg tablet 10 mg PO BEDTIME PRN Insomnia 11/30/24 01/14/25 Unknown History Lactobacillus acidophilus and 1 cap PO DAILY 01/14/25 01/14/25 Unknown History rhamnosus 15 billion cell capsule (Probiotic) ascorbic acid (vitamin C) 500 mg 500 mg PO DAILY 01/14/25 01/14/25 Unknown History tablet (Vitamin C) biotin 5 mg tablet 5 mg PO DAILY 01/14/25 01/14/25 Unknown History calcium carbonate 600 mg PO DAILY 01/14/25 01/14/25 Unknown History cyanocobalamin (vitamin B-12) 100 100 mcg PO DAILY 01/14/25 01/14/25 Unknown History mcg tablet (Vitamin B-12) duloxetine 60 mg capsule,delayed 60 mg PO QAM 01/14/25 01/14/25 Unknown History release glucosamine-chondroitin 250 mg-200 2 tab PO QAM 01/14/25 01/14/25 Unknown History mg tablet lansoprazole 30 mg capsule,delayed 30 mg PO QAM 01/14/25 01/14/25 Unknown History release cagopfblaata-ixkbedbu-thcfef tablet 1 tab PO DAILY 01/14/25 01/14/25 Unknown History Exam Height,Weight and Vital Signs: Height 5 ft 3.5 in Weight 72.2 kg Last Vital Signs Pulse 65 01/14/25 10:04 Resp 18 01/14/25 10:04 BP 120/61 01/14/25 10:04 Pulse Ox 97 01/14/25 10:04 O2 Del Method Room Air 01/14/25 10:04 Pertinent Lab Results Pertinent Lab Results: CBC and BMP 09/2024 from outside facility WNL Airway Mallampati Class: III TM Dist: >3cm Neck ROM: Full Denture: Upper (Implant posts) Loose/Missing/Broken Teeth: Yes (extracted lower teeth) Heart: RRR Lungs: CTAB Assessment and Plan Assessment Anesthesia Assessment: Anesthesia Plan Discussed and PAT Visit Final Anesthetic Review Family History of Problems with Anesthesia: No History of Problems with Anesthesia: No Documented by User: Yas Teran, 01/28/25 11:53 PMFSH Past Medical History Medical History Elevated cholesterol Arthritis GERD (gastroesophageal reflux disease) Diverticulosis Hip arthritis Insomnia Low back pain Depression Multiple sclerosis Migraine headache Family History Family history of problems with anesthesia: No Surgical History Surgical History H/O colonoscopy History of lumbar surgery History of bladder suspension procedure History of hysterectomy History of Problems with Anesthesia: No Social History Social History (Updated 11/30/24 @ 17:25 by Macie Woods MA) Are you a primary nurse care manager to a significant other at home: No Do you presently have visiting nurse or other home services: No Comment: occasional mild loss of balance due to MS Patient Tobacco Use Status: Never used Tobacco Use of substances other than those prescribed or required for medical reasons: No Have you been hit, kicked, punched, or otherwise hurt by someone within the past year? If so, by whom?: No Spiritual Healthcare Practices: no Temple Healthcare Practices: no Cultural Healthcare Practices: no Are you DNR?: No Advance Directives on File: No FDLMP: n/a Meds Allergies Allergy/AdvReac Type Severity Reaction Status Date / Time meperidine (From Demerol) Allergy Intermediate Vomiting Verified 01/28/25 10:23 Sulfa (Sulfonamide Allergy Unknown reaction Verified 01/28/25 10:23 Antibiotics) unknown-long ago Home Medications ?Medication ?Instructions ?Recorded ?Confirmed ?Last Taken ?Type amitriptyline 25 mg tablet 25 mg PO BEDTIME 11/30/24 01/14/25 Unknown History duloxetine 30 mg capsule,delayed 30 mg PO QAM 11/30/24 01/14/25 Unknown History release fenofibrate nanocrystallized 145 145 mg PO QAM 11/30/24 01/14/25 Unknown History mg tablet icosapent ethyl 1 gram capsule 2 g PO BID 11/30/24 01/14/25 Unknown History Held on 01/28/25. Instructions: Resume on 02/04/25. You may resume 1 week after surgery lorazepam 0.5 mg tablet 0.5 mg PO QAM 11/30/24 01/14/25 Unknown History propranolol 120 mg capsule,24 120 mg PO QAM migraine 11/30/24 01/14/25 Unknown History hr,extended release zolpidem 10 mg tablet 10 mg PO BEDTIME PRN Insomnia 11/30/24 01/14/25 Unknown History Lactobacillus acidophilus and 1 cap PO DAILY 01/14/25 01/14/25 Unknown History rhamnosus 15 billion cell capsule (Probiotic) ascorbic acid (vitamin C) 500 mg 500 mg PO DAILY 01/14/25 01/14/25 Unknown History tablet (Vitamin C) biotin 5 mg tablet 5 mg PO DAILY 01/14/25 01/14/25 Unknown History calcium carbonate 600 mg PO DAILY 01/14/25 01/14/25 Unknown History cyanocobalamin (vitamin B-12) 100 100 mcg PO DAILY 01/14/25 01/14/25 Unknown History mcg tablet (Vitamin B-12) duloxetine 60 mg capsule,delayed 60 mg PO QAM 01/14/25 01/14/25 Unknown History release glucosamine-chondroitin 250 mg-200 2 tab PO QAM 01/14/25 01/14/25 Unknown History mg tablet lansoprazole 30 mg capsule,delayed 30 mg PO QAM 01/14/25 01/14/25 Unknown History release pxtmliworcfu-fnwjrugc-brzepo tablet 1 tab PO DAILY 01/14/25 01/14/25 Unknown History Exam Exam Date and Time: 01/28/25 1140 Height,Weight and Vital Signs: Height 5 ft 3.5 in Weight 72.2 kg Last Vital Signs Pulse 65 01/14/25 10:04 Resp 18 01/14/25 10:04 BP 120/61 01/14/25 10:04 Pulse Ox 97 01/14/25 10:04 O2 Del Method Room Air 01/14/25 10:04 Vital Signs Pulse Rate 65 01/14/25 10:04 Respiratory Rate 18 01/14/25 10:04 Blood Pressure 120/61 01/14/25 10:04 Pulse Oximetry 97 01/14/25 10:04 Oxygen Delivery Method Room Air 01/14/25 10:04 Temperature 97.9 F 01/28/25 10:49 Pulse Rate 68 01/28/25 10:49 Respiratory Rate 15 01/28/25 10:49 Blood Pressure 148/71 H 01/28/25 10:49 Pulse Oximetry 95 01/28/25 10:49 Oxygen Delivery Method Room Air 01/28/25 10:49 Airway Mallampati Class: II TM Dist: >3cm Neck ROM: Full Denture: Upper Loose/Missing/Broken Teeth: Yes (extracted lower teeth) Heart: S1S2 Assessment and Plan Assessment Anesthesia Assessment: Anesthesia Plan Discussed and Chart Reviewed Final Anesthetic Review Family History of Problems with Anesthesia: No History of Problems with Anesthesia: No NPO: Yes ASA Class: II Final Preanesthetic Review: No Changes in Pt Med Stat, Meds/Allgs Chart Reviewed, Consent Obtained/Reviewed and Anes Risks/Benef Reviewed Patient Risk: Low Procedure Risk: Low Anesthetic Plan Anesthetic Plan: GA and Agree w/ Assess. and Plan Disposition: Standard PACU
--- NOTE | 2025-01-28 14:05 | W.PM.OPN ---
Operative Note Operative Note Date of Service: 01/28/25 Narrative: Preoperative diagnosis: Right L5 radiculopathy due to disc herniation Postoperative diagnosis: Same Procedure: Right L5-S1 microdiskectomy with microscope Surgeon: Christopher Leone MD, PhD Sample Body Builder: anabell Santiago This patient is suffering from a right L5 radiculopathy. Imaging is suspicious for a fragment that sits in the axilla of the L5 nerve root. The patient was offered a lumbar microdiskectomy to decompress the nerve root. The procedure complications were explained. The patient was consented. The patient was brought to the operating room and endotracheally intubated. The patient was turned in a prone position on the Joe frame. Prepping and draping was done followed by time-out. A mid lumbar incision was made followed by release of the paravertebral muscles on the right side to expose the L5-S1 interspace. An intraoperative x-rays obtained to confirm the correct level. The microscope was brought in. A L5 laminotomy was done followed by opening of the flavum ligament. The S1 nerve root was identified as well as the L5-S1 disc space. X-ray confirmed and I was under the disc space. Another x-rays showed that I was at the inferior border of the L4 pedicle. I inspected the area between the L4 pedicle and the L5-S1 disc space but was unable to retrieve the disc fragment. There was a piece of bone originating from the L5 vertebral body and I was wondering if the hypointense lesion seen on the MRI represents bone. I removed it as much as possible. In the end of the nervous structures were all pulsating a sign of adequate decompression. Hemostasis was done. The microscope was removed. Marcaine was injected intramuscularly.The incision was closed in two layers. Steri-Strips used to approximate the incision. An op-site were taken there was used to cover the incision. All sponge and needle counts were correct. Patient was extubated and transported in stable condition to recovery room. this procedure was done with the aid of a physician timber management assistant who performed the initial exposure until the microscope was brought in and performed the closure of the incision. Anesthesia: General Blood loss: 10 mL Complications: None Specimen: None Surgical time: 40 minutes Disposition: Discharge home
== END 2025-01-28 16:00 | disposition home or self-care (01) ==
PROVIDERS: PCP Internal Medicine; Visit Provider Neurological Surgery
PROC: (CPT 63030; principal; 2025-01-28 13:10)
DX: M51.16 Intervertebral disc disorders with radiculopathy, lumbar region (principal); M54.50 Low back pain, unspecified; G35 Multiple sclerosis; K21.9 Gastro-esophageal reflux disease without esophagitis; Z87.19 Personal history of other diseases of the digestive system; Z90.49 Acquired absence of other specified parts of digestive tract; Z79.82 Long term (current) use of aspirin; Z79.899 Other long term (current) drug therapy; Z88.2 Allergy status to sulfonamides; Z88.5 Allergy status to narcotic agent; Z98.890 Other specified postprocedural states
CPT/HCPCS: 63030; J0131; J0690; J1100; J1885; J2003; J2371; J2405; J2704; J3010

== ENCOUNTER → 2025-01-28 09:37 | Outpatient (BNV) | payer MEDICARE, SELFPAY | PROVIDERS: PCP Internal Medicine; Visit Provider Neurological Surgery | DX: M54.16 Radiculopathy, lumbar region (principal) | CPT/HCPCS: 63030; 99499 ==

== ENCOUNTER 2025-02-18 09:14 | Outpatient (AMB) | payer MEDICARE, SELFPAY ==
--- NOTE | 2025-02-18 09:29 | A.SPINEOV_ITS ---
Intake Visit Reasons: 1st post op Intake Note: Mrs. Romano is here today for her 1st post op. Rollway Man Required: No Allergies meperidine (From Demerol) Allergy (Intermediate, Verified 01/28/25 10:23) Vomiting Sulfa (Sulfonamide Antibiotics) Allergy (Unknown, Verified 01/28/25 10:23) reaction unknown-long ago Assessment & Plan Assessment & Plan (1) Lumbar disc herniation with radiculopathy: Code(s): M51.16 - Intervertebral disc disorders with radiculopathy, lumbar region Category: Medical Plan Procedure: Right L5-S1 microdiskectomy Chary is a pleasant 79-year-old female comes in today for her 1st postoperative visit after having a right-sided L5-S1 microdiskectomy completed by Dr. Leone. She reports that overall she has been doing very well since her surgery. She does report that in the 1st week or so after surgery she had complete resolution of her pain, however some of the right-sided leg pain has returned on a low-grade level since her operation. We discussed how this may be related to postoperative inflammation, and I answered all questions she had related to the postoperative healing course. No new neurological deficits. The patient ambulates well and rises from seated position without difficulty. Her posterior incision site is closed and well healing. I would like to follow up with Chary again in 6 weeks for her 2nd postoperative visit. Kurt Leone MD,PhD [facility] Coding Level of Care Code Global (67798) Diagnoses Lumbar disc herniation with radiculopathy M51.16
--- OUTSIDE RECORDS SUMMARY | 2025-02-18 10:08 | XMS_ITS | Clinical Summary ---
Author Organization [facility] Address [address] [place] [address] Phone Care Team Providers Care Guitar Repair Technician Name Role Phone Ian Dickey MD Unavailable [phone] Ian Dickey MD Unavailable [phone] Ian Dickey MD Primary Care Provider [phone] Allergies Active Allergy Reactions Criticality Noted Date [...] mouth daily. Active L GASSERI/B BIFIDUM/B LONGUM ([facility] ORAL) Take 1 capsule by [...] by mouth daily as needed for anxiety. 07/17/19 20 Active zolpidem (AMBIEN) 10 mg tablet Take 10 mg by mouth nightly at bedtime. 07/16/19 20 Active DULoxetine (CYMBALTA) 60 MG capsule Take 1 capsule by mouth daily. Taken along with 30 mg (total 90 mg daily). 11/04/19 20 Active propranoloL (INDERAL LA) 120 mg 24 hr capsule Take 120 mg by mouth daily. Active omega-3 acid ethyl esters (LOVAZA) 1 gram capsuleIndicati ons:Hyperglycer idemia Take 2 capsules (2 g total) by mouth 2 (two) times a day. 120 capsule 5 09/24/19 23 Active Additional Information Patient not taking.Reported on 10/05/2024 acetaminophen (TYLENOL EX STR RAPID RELEASE ORAL) Take 2 tablets by mouth every other day. Alternating with tylenol arthritis Active acetaminophen (TYLENOL) 650 MG CR tablet Take 1,300 mg by mouth every other day. Alternating with rapid release tylenol Active icosapent ethyL (VASCEPA) 1 gram capsuleIndicati ons:Hyperglycer idemia Take 2 capsules (2 g total) by mouth 2 (two) times a day with meals. 360 capsule 3 10/06/19 25 Active meloxicam (MOBIC) 7.5 MG tabletIndicatio ns:Pain of right hip Take 1 tablet (7.5 mg total) by mouth daily with breakfast. 30 tablet 1 10/06/19 25 Active fenofibrate (TRICOR) 145 MG tabletIndicatio ns:Hyperglyceri demia Take 1 tablet (145 mg total) by mouth daily. 90 tablet 2 10/22/19 25 Active lansoprazole (PREVACID) 30 MG capsuleIndicati ons:Gastroesoph ageal reflux disease without esophagitis TAKE 1 CAPSULE BY MOUTH TWICE DAILY 180 capsule 3 01/29/20 25 Active lansoprazole (PREVACID) 30 MG capsuleIndicati ons:Gastroesoph ageal reflux disease without esophagitis take 1 capsule by mouth twice daily 180 capsule 3 02/11/20 24 025 Discontinued Active Problems Problem Noted Date Diagnosed Date MS (multiple sclerosis) 08/01/2018 Overview (08/01/2018): Dr. Stephen S/P [facility] 08/01/2018 Constipation 04/22/2017 Gastroesophageal reflux disease 04/22/2017 Hyperlipidemia 04/22/2017 Migraine without aura and wi thout status migrainosus, not intractable 04/22/2017 Nocturia 04/22/2017 Encounters Date Type Department Care Team Description 01/28/2025 Refill [facility] Internal Medicine [address] [place] [address] aIn Dickey MD Medication Refill 01/28/2025 Orders Only [facility] Internal Medicine [address] [place] [address] Provider, MD Mirta from Last 3 Months Immunizations Immunization Administration Dates Next Due COVID-19 (Pre) SpokenLayer Vaccine, [id number], PF 08/04/2020 COVID-19 (Pre) Pfizer Vaccine, mRNA, PF 03/23/2021 INFLUENZA, SPLIT [...] Description 04/07/2025 1:30 PM EST [facility] [address] [place] [address] Ian Dickey MD [address] [place] [address] [email or web address] Health Maintenance Due Date Last Done Comments INFLUENZA VACCINE (#1) 2024 , 02/20/2023, 02/20/2023, Additional history exists COVID-19 VACCINE ( season) 2025 02/11/2024, 08/09/2023, 02/20/2023, Additional history exists DEPRESSION SCREENING 03/25/2025 03/25/2024 Adult Td,Tdap Booster 08/30/2026 08/30/2016, 006 FOLLOW UP BONE DENSITY TESTING 09/24/2029 09/24/2024, 09/18/2024, 03/31/2024, Additional history exists LIPID PANEL 09/28/2029 09/28/2024, 0401/2024, 05/02/2023, Additional history exists PNEUMOCOCCAL VACCINES (50+ [...] Procedure Name Priority Date/Time Associated Diagnosis Comments OUTSIDE XR IMAGING REPORT ONLY Routine 01/28/2025 2:40 PM EDT LIPID PANEL Routine 09/28/2024 11:09 AM EDT Hyperglyceridemia OUTSIDE BONE DENSITY SCREENING Routine 09/24/2024 HEPATITIS C ANTIBODY, QUALITATIVE Routine 08/27/2018 10:28 AM EDT Need for hepatitis C screening test from Last 3 Months or Most Recently Relevant to Health Maintenance Results * Outside XR Imaging Report Only (01/28/2025 2:40 PM EDT) Historical Provider IMKamari XR CHEST Final Res ult * (ABNORMAL) Lipid panel (09/28/2024 11:09 AM EDT) HDL 37 mg/dL [facility] Comment: Interpretation <40 mg/dL: Low HDL cholesterol (major risk factor for CHD) Greater than or equal to 60 mg/dL: High HDL cholesterol ( negative risk factor for CHD) HDL - cholesterol is affected by a number of factors, e.g. smoking, excerise, hormones, sex and age. CHOLESTEROL 282(H) 0 - 240 mg/dL [facility] TRIGLYCERIDES 506(H) 30 - 160 mg/dL [facility] LDL NOT CALCULATED 50 - 129 mg/dL [facility] Comment: Unable to calculate due to elevated TRIG of greater than 400. A measured LDL will be performed. CARDIAC RISK RATIO 7.6(H) 3.3 - 4.4 [facility] Blood 09/28/2024 11:0 9 AM EDT 09/28/2024 11:44 AM EDT Ian Dickey MD LAB BLOOD ORDERABLES Final Re sult [facility] [address] [place] [address] * OUTSIDE BONE DENSITY SCREENING (09/24/2024) BONE DENSITY SCREENING - EXTERNAL Osteopenia EXTERNAL NON-INTERFACE D REF LAB us Historical Provider HEALTH MAINTENANCE Final Result EXTERNAL NON-INTERFACED REF LAB * Hepatitis C antibody, qualitative (08/27/2018 10:28 AM EDT) HCV Negative Negative [facility] Comment: This is a screening test and should be confirmed with molecular testing Blood 08/27/2018 10:2 8 AM EDT 08/27/2018 10:32 AM EDT Ian Dickey MD LAB BLOOD ORDERABLES Final Re sult [facility] [address] [place] [address] from Last 3 Months or Most Recently Relevant to Health Maintenance Insurance [place] [id number] MEDICARE PART A & B (Work) [address] [place] [address] MEDICARE PART A & B MEDICARE PART A & B MEDICARE PART A & B (Work) [address] [place] [address] MEDICARE PART A & B (Work) [address] [place] [address] MEDICARE PART A & B (Work) [address] [place] [address] MEDICARE PART A & B MEDICARE PART A & B Care Teams Guitar Repair Technician Relationship Specialty Start Date End Date Ian Dickey MD [address] [place] [address] [email or web address] PCP - General Internal Medicine 04/22/17 Ian Dickey MD [address] [place] [address] [email or web address] Insurance Assigned Provider 08/31/23 Ian Dickey MD [address] [place] [address] [email or web address] Historical LMR Provider 03/17/17 Additional Source Comments The information contained in this document represents components of the legal health record. It is not the complete legal health record.[facility]
--- OUTSIDE RECORDS SUMMARY | 2025-02-18 10:09 | XMS_ITS | Encounter Summary ---
Author Organization [facility] Address [address] [address] Phone Care Team Providers Care Supervisor Computer Operations Name Role Phone Ian Dickey MD Unavailable [phone] Ian Dickey MD Unavailable [phone] Ian Dickey MD Primary Care Provider [phone] Encounter Details Date Type Department Care Team (Late st Contact Info) Description 12/16/2023 Transcribe Orders [facility] [address] [place] [address] Ian Dickey MD [address] [place] [address] [email or web address] Social History Tobacco Use Types Packs/Day Years [...] with a working camera? Not on file Comments No Sex and Gender Information Value [...] Description 04/07/2025 1:30 PM EST Office Visit [facility] Internal Medicine [address] [place] [address] Ian Dickey MD [address] [place] [address] documented as of this encounter Visit Diagnoses Not on filedocumented in this encounter Additional Health Concerns Assessment Noted Time PHQ-2 Depression Total Score: 0 03/14/20 23 6:48 PM EDT documented as of this encounter Care Teams Supervisor Computer Operations Relationship Specialty Start Date End Date Ian Dickey MD [address] [place] [address] PCP - General Internal Medicine 04/22/17 Ian Dickey MD [address] [place] [address] Insurance Assigned Provider 08/31/23 Ian Dickey MD [address] [place] [address] Historical LMR Provider 03/17/17 documented as of this encounter Additional Source Comments The information contained in this document represents components of the legal health record. It is not the complete legal health record.[facility]
== END 2025-02-18 09:43 | disposition home or self-care (01) ==
PROVIDERS: PCP Internal Medicine; Visit Provider Physician Assistant
DX: M51.16 Intervertebral disc disorders with radiculopathy, lumbar region (principal)
CPT/HCPCS: 99024

== ENCOUNTER → 2025-02-18 09:14 | Outpatient (BNVA) | payer MEDICARE, SELFPAY | PROVIDERS: PCP Internal Medicine; Visit Provider Physician Assistant | DX: M51.16 Intervertebral disc disorders with radiculopathy, lumbar region (principal); Z98.890 Other specified postprocedural states | CPT/HCPCS: 99212 ==

== ENCOUNTER 2025-03-02 13:16 | Outpatient (AMB) | payer MEDICARE, SELFPAY ==
--- NOTE | 2025-03-02 13:38 | A.OFFVIS_ITS ---
Intake Visit Reasons: 4M/ Right L5-S1 HNP, MS, Migraine Allergies meperidine (From Demerol) Allergy (Intermediate, Verified 01/28/25 10:23) Vomiting Sulfa (Sulfonamide Antibiotics) Allergy (Unknown, Verified 01/28/25 10:23) reaction unknown-long ago HPI Comments Details: Had discectomy 01/28/[address] Leone. Pain is better , but not gone. Wound has healed. No relief from Meloxicam. for 4-5 months she had constant RLE pain from sharp groin pain and buttock going down to foot. No injuries. 10/30/24 MRI LS spine shows L5-S1 right sided HNP with compression of right L5 rootalong with a disc free fragment with cephalad migration. XR right hip show smoderate OA She also has asymptomatic MS. MRI brain shows white matter disease that is probably chronic. Not sure of any enhancement because of artifact. Old MRI not available for comparison.? Left facial twitching happening on and off, few times a week and most often when laying down at night. No pain. She is not sure when facial twitching became more frequent. Few occasional headaches, but no migraines. Chronic low back pain. Having some right leg pain over the last few months which she describes as a nuisance, unsure if pain is radiating down leg from low back. Leg feels weaker. Off balance at times, no falls. Not walking as much. Sleep is okay with medication. Previously was getting infrequent left facial twitching. No pain. LBP acted up after doing lot of house work. No migraine headaches or muscle tension headaches. Not taking any migraine abortive therapy. Has position vertigo that occasionally needs repositioning. No side effects other than slight dry mouth from medication. MRIs in past have shown findings consistent with stable demyelinating disease. Has not had any clinical symptoms to suggest MS. Last MRI of brain was 06/2007, showed moderate amount of chronic white matter changes which are nonspecific, in deep white matter predominantly in a periventricular distribution. [facility] Medical History (Updated 03/02/25 @ 13:51 by Tara Stephen MD) Elevated cholesterol Arthritis GERD (gastroesophageal reflux disease) Diverticulosis Hip arthritis Insomnia Low back pain Depression Multiple sclerosis Migraine headache Surgical History H/O colonoscopy History of lumbar surgery History of bladder suspension procedure History of hysterectomy Social History (Updated 11/30/24 @ 17:25 by Macie Woods MA) Are you a primary ocular care technician to a significant other at home: No Do you presently have visiting nurse or other home services: No Comment: occasional mild loss of balance due to MS Patient Tobacco Use Status: Never used Tobacco Review of Systems Const Details: General/Constitutional:? Change in appetitedenies.? Fatiguedenies.? Feverdenies.? Weight gaindenies.? Weight lossdenies. ???Sleep:? Difficulty getting to sleepadmits.? Difficulty maintaining sleepadmits.? Daytime sleepinessdenies. ???Respiratory:? Shortness of breathdenies.? Chest paindenies. ???Cardiovascular:? Chest pain at restdenies.? Chest pain with exertiondenies.? Dizzinessdenies.? Fluid accumulation in the legsdenies.? Irregular heartbeatdenies.? Palpitations denies. ???Gastrointestinal:? Constipationdenies.? Diarrheadenies.? Difficulty swallowingdenies.? Heartburn denies.? Nauseadenies. ???Genitourinary:? Frequent urinationdenies.? Urgencydenies.? Incontinencedenies. ???Musculoskeletal:? Neck paindenies.? Back painadmits.? Joint stiffnessdenies.? Sciaticadenies. ???Neurologic:? Difficulty swallowingdenies.? Balance difficultydenies.? Coordinationnormal.? Difficulty speakingdenies.? Dizzinessdenies.? Faintingdenies.? Gait abnormality denies.? Headachedenies.? Loss of strengthdenies.? Loss of use of extremity denies.? Low back painadmits.? Memory lossdenies.? Seizuresdenies.? Ticsdenies.? Tingling/Numbnessdenies.? Transient loss of visiondenies.? Tremordenies. ???Psychiatric:? Anxietydenies.? Auditory/visual hallucinationsdenies.? Delusionsdenies.? Depressed mooddenies.? Stressorsdenies.? Suicidal thoughtsdenies. Reports headache(s) ENT Reports headache(s) Neuro Reports headache(s) Physical Exam Neuro Other: Neurological: Abnormal neurological findings:??none.?Mental Status:??alert and oriented X 3,?Normal attention, orientation, memory and affect.?Cranial Nerves:??Pupils are equal, round and reactive to light. Fundoscopy shows normal disc bilaterally. External occular muscles are intact. Visual farr are full, no ptosis. Face is symmetrical, no facial weakness or droop. Facial sensations are normal. Tongue protrudes in midline. Palate elevates symmetrically. Shoulder shrugging is normal..?Motor Examination:??Normal muscle tone, bulk and strength,?No atrophy or fasciculations,?No drift of the extended upper extremities,?Deep tendon reflexes are 2+?,?Plantars are flexor?.?Straight Leg Raising:??90 degrees.?Sensory Exam:??Normal light touch, temperature, pinprick, vibration and joint-position sensations?,?Rhomberg sign is absent.?Coordination:??no ataxia,?no titubation,?xdxhrp-oc-iaps, vdud-ifla-tpdw test and rapid alternating movements were normal.?Gait Exam:??Within normal limits.?Cerebellar Signs:??Afihxo-cd-wmsr and fmpi-rs-hams is normal,?no dysdiadochokine melia?.?Extrapyramidal System:??No tremor, rigidity with normal facial expressions,?No bradykinesia, no bradyphrenia. Normal arm swing and posture. No propulsion or retropulsion.?Speech:??Normal,?no dysphasia or dysarthria..? General Examination: GENERAL APPEARANCE:??normal,?in no acute distress.?HEART:??S1, S2 normal,?no murmurs.?LUNGS:??clear anteriorly and posteri xochilt.?MUSCULOSKELETAL:??normal.?EXTREMITIES:??no edema.?PSYCH:??alert, oriented,?cognitive function intact,?cooperative with exam.? Mini Mental Status Exam: Level of Consciousness:??Alert.?Orientation:??Knows correct year, month, date, day and season,?Knows correct city, county and state. Knows correct location and floor.?Registration:??Able to register 3 objects.?Attention:??Serial 7's performed accurately.?Recall:??Able to recall 3 out of 3 objects.?Language:??Normal spontaneous speech, fluency, repetition,naming, comprehension, reading and writing.?Total Score:??30/30.? Assessment & Plan Assessment & Plan (1) Migraine headache: Comment: Continue current meds Code(s): G43.909 - Migraine, unspecified, not intractable, without status migrainosus Category: Medical (2) Multiple sclerosis: Comment: 09/18/2024 MRI of the brain without and with contrast: There are foci of patchy periventricular, juxtacortical and subcortical white matter T2/FLAIR hyperintense signal and some foci of apparent faint enhancement and some of these areas in the left temporal lobe the right subfrontal subcortical and left periatrial area Code(s): G35 - Multiple sclerosis Category: Medical (3) Lumbar disc herniation with radiculopathy: Comment: 10/20/24 Moderate osteoarthrosis right hip joint. 10/31/2024 MRI of the lumbar spine: Small right-sided foraminal disc herniation at L5-S1 encroaching the right L5 root. Postsurgical change at L4-5 related to prior decompression laminectomy. Wkfo-rw-csmmkcxo foraminal stenosis at this level. Code(s): M51.16 - Intervertebral disc disorders with radiculopathy, lumbar region Category: Medical (4) Hemifacial spasm of left side of face: Code(s): G51.32 - Clonic hemifacial spasm, left Category: Medical Plan Continue walking and balance training. Continue current meds. Coding Level of Care Code Est Pt Level 4 (63217) Diagnoses Migraine headache G43.909 Multiple sclerosis G35 Lumbar disc herniation with radiculopathy M51.16 Hemifacial spasm of left side of face G51.32
--- OUTSIDE RECORDS SUMMARY | 2025-03-02 16:16 | XMS_ITS | Encounter Summary ---
Author Organization [facility] Address [address] [facility] [address] [place] [address] Phone Care Team Providers Care Dispatch Associate Name Role Phone Ian Dickey MD Unavailable [phone] Ian Dickey MD Unavailable [phone] Ian Dickey MD Primary Care Provider [phone] Encounter Details Date Type Department Care Team (Late st Contact Info) Description 01/28/2025 Orders Only [facility] Internal Medicine [address] [place] [address] Provider, MD Mirta [address] [place], [place] [id number] Social History Tobacco Use Types Packs/Day Years [...] 04/07/2025 1:30 PM EST Office Visit [facility] Internal Medicine [address] [place], [place] [id number] Ian Dickey MD [address] [place] [address] [email or web address] documented as of this encounter Procedures Procedure Name Priority Date/Time Associated Diagnosis Comments OUTSIDE XR IMAGING REPORT ONLY Routine 01/28/2025 2:40 PM EDT documented in this encounter Results * Outside XR Imaging Report Only (01/28/2025 2:40 PM EDT) us Historical Provider MD [place] XR CHEST Final Res ult documented in this encounter Visit Diagnoses Not on filedocumented in this encounter Additional Health Concerns Assessment Noted Time PHQ-2 Depression Total Score: 0 03/25/20 24 9:15 PM EDT documented as of this encounter Care Teams Dispatch Associate Relationship Specialty Start Date End Date Ian Dickey MD [address] [place] [address] [email or web address] PCP - General Internal Medicine 04/22/17 Ian Dickey MD [address] [place] [address] [email or web address] Insurance Assigned Provider 08/31/23 Ian Dickey MD [address] [place] [address] [email or web address] Historical LMR Provider 03/17/17 documented as of this encounter Additional Source Comments The information contained in this document represents components of the legal health record. It is not the complete legal health record.[facility]
--- OUTSIDE RECORDS SUMMARY | 2025-03-02 16:16 | XMS_ITS | Clinical Summary ---
Author Organization [facility] Address [address] [place] [address] Phone Care Team Providers Care Maitre D' Name Role Phone Ian Dickey MD Unavailable [phone] Ian Dickey MD Unavailable [phone] Ina Dickey MD Primary Care Provider [phone] Allergies Active Allergy Reactions Criticality Noted Date [...] mouth daily. Active L GASSERI/B BIFIDUM/B LONGUM ([facility] ORAL) Take 1 capsule [...] mouth daily. 90 tablet 2 5 Active lansoprazole (PREVACID) 30 MG capsuleIndicatio ns:Gastroesophag eal reflux disease without esophagitis TAKE 1 CAPSULE BY MOUTH TWICE DAILY 180 capsule 3 5 Active Active Problems Problem Noted Date Diagnosed Date MS (multiple sclerosis) 08/01/2018 Overview (08/01/2018): Dr. Stephen S/P [facility] 08/01/2018 Constipation 04/22/2017 Gastroesophageal reflux disease 04/22/2017 Hyperlipidemia 04/22/2017 Migraine without aura and wi thout status migrainosus, not intractable 04/22/2017 Nocturia 04/22/2017 Encounters Date Type Department Care Team Description 01/28/2025 Refill [facility] Internal Medicine [address] [place] [address] Ian Dickey MD Medication Refill 01/28/2025 Orders Only [facility] Internal Medicine [address] [place] [address] Provider, MD Mirta from Last 3 Months Immunizations Immunization Administration Dates Next Due COVID-19 (Pre-03/18) Suresh [...] Description 04/07/2025 1:30 PM EST Office Visit [facility] Internal Medicine [address] [place] [address] Ian Dickey MD [address] [place] [address] [email or web address] Health Maintenance Due Date Last Done Comments [...] Only (01/28/2025 2:40 PM EDT) Historical Provider IMG XR CHEST Final Res ult * (ABNORMAL) Lipid panel (09/28/2024 11:09 AM EDT) HDL 37 mg/dL [facility] Comment: Interpretation <40 mg/dL: Low HDL cholesterol (major risk factor for CHD) Greater than or equal to 60 mg/dL: High HDL cholesterol ( negative risk factor for CHD) HDL - cholesterol is affected by a number of factors, e.g. smoking, excerise, hormones, sex and age. CHOLESTEROL 282(H) 0 - 240 mg/dL [facility] TRIGLYCERIDES 506(H) 30 - 160 mg/dL [facility] LDL NOT CALCULATED 50 - 129 mg/dL [facility] Comment: Unable to calculate due to elevated TRIG of greater than 400. A measured LDL will be performed. CARDIAC RISK RATIO 7.6(H) 3.3 - 4.4 [facility] Blood 09/28/2024 11:0 9 AM EDT 09/28/2024 11:44 AM EDT us Ian Dickey MD LAB BLOOD ORDERABLES Final Re sult [address] [address] * OUTSIDE BONE DENSITY SCREENING (09/24/2024) BONE DENSITY SCREENING - EXTERNAL Osteopenia EXTERNAL NON-INTERFACE D REF LAB us Historical Provider HEALTH MAINTENANCE Final Result EXTERNAL NON-INTERFACED REF LAB * Hepatitis C antibody, qualitative (08/27/2018 10:28 AM EDT) HCV Negative Negative [facility] Comment: This is a screening test and should be confirmed with molecular testing Blood 08/27/2018 10:2 8 AM EDT 08/27/2018 10:32 AM EDT us Ian Dickey MD LAB BLOOD ORDERABLES Final Re sult [facility] [address] [place] [address] from Last 3 Months or Most Recently Relevant to Health Maintenance Insurance MEDICARE PART A & B MEDICARE PART A & B (Work) [address] [facility] [address] MEDICARE PART A & B MEDICARE PART A & B (Work) [address] [place] [address] MEDICARE PART A & B MEDICARE PART A & B MEDICARE PART A & B (Work) [address] [place] [address] MEDICARE PART A & B MEDICARE PART A & B Care Teams Maitre D' Relationship Specialty Start Date End Date Ian Dickey MD [address] [place] [id number] PCP - General Internal Medicine 04/22/17 Ian Dickey MD [address] [place] [address] Insurance Assigned Provider 08/31/23 Ian Dickey MD [address] [place] [address] Historical LMR Provider 03/17/17 Additional Source Comments The information contained in this document represents components of the legal health record. It is not the complete legal health record.[facility]
--- OUTSIDE RECORDS SUMMARY | 2025-03-02 16:16 | XMS_ITS | Encounter Summary ---
Author Organization [facility] Address [address] [address] Phone Care Team Providers Care Chemist Physical Name Role Phone Ian Dickey MD Unavailable [phone] Ian Dickey MD Unavailable [phone] Ian Dickey MD Primary Care Provider [phone] Encounter Details Date Type Department Care Team (Late st Contact Info) Description 12/16/2023 Transcribe Orders [facility] Specimen Processing [address] [place] [address] Ian Dickey MD [address] [place] [address] [email or web address] Social History Tobacco Use Types Packs/Day Years [...] Description 04/07/2025 1:30 PM EST Office Visit [facility] Internal Medicine [address] [place] [address] Ian Dickey MD [address] [place] [address] documented as of this encounter Visit Diagnoses Not on filedocumented in this encounter Additional Health Concerns Assessment Noted Time PHQ-2 Depression Total Score: 0 03/14/20 23 6:48 PM EDT documented as of this encounter Care Teams Chemist Physical Relationship Specialty Start Date End Date Ian Dickey MD [address] [place] [address] PCP - General Internal Medicine 04/22/17 Ian Dickey MD [address] [place] [address] Insurance Assigned Provider 08/31/23 Ian Diceky MD [address] [place] [address] Historical LMR Provider 03/17/17 documented as of this encounter Additional Source Comments The information contained in this document represents components of the legal health record. It is not the complete legal health record.[facility]
== END 2025-03-02 13:53 | disposition home or self-care (01) ==
LOC: HO.HSM 13:17
PROVIDERS: PCP Internal Medicine; Visit Provider Psychiatry & Neurology Neurology
DX: M51.16 Intervertebral disc disorders with radiculopathy, lumbar region (principal); G35.D Multiple sclerosis, unspecified; G51.32 Clonic hemifacial spasm, left; G43.909 Migraine, unspecified, not intractable, without status migrainosus
CPT/HCPCS: 99214

== ENCOUNTER → 2025-03-02 13:16 | Outpatient (BNVA) | payer MEDICARE, SELFPAY | PROVIDERS: PCP Internal Medicine; Visit Provider Psychiatry & Neurology Neurology | DX: G43.909 Migraine, unspecified, not intractable, without status migrainosus (principal); G51.32 Clonic hemifacial spasm, left; G35.D Multiple sclerosis, unspecified; M51.16 Intervertebral disc disorders with radiculopathy, lumbar region | CPT/HCPCS: 99212 ==

== ENCOUNTER 2025-04-01 10:17 | Outpatient (AMB) | payer MEDICARE, SELFPAY ==
--- NOTE | 2025-04-01 10:20 | A.SPINEOV_ITS ---
Intake Visit Reasons: 2nd post op Intake Note: Mrs. Romano is here today for her 2nd post op. 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 10/31/2024 MRI of the lumbar spine: Small right-sided foraminal disc herniation at L5-S1 encroaching the right L5 root. Postsurgical change at L4-5 related to prior decompression laminectomy. [id number] foraminal stenosis at this level. Code(s): M51.16 - Intervertebral disc disorders with radiculopathy, lumbar region Category: Medical Plan Procedure: Right L5-S1 microdiskectomy Chary is a pleasant 79-year-old female comes in today for her 2nd postoperative visit after having a right-sided L5-S1 microdiskectomy completed by Dr. Leone. During her last visit she reported overall good resolution of her pain with only occasional flare ups of pain in her right leg. Today she reports essentially complete resolution of her pain, with the only flare ups of pain occurring with increased activity. She is overall very satisfied with the procedure. No new neurological deficits. The patient ambulates well and rises from seated position without difficulty. Her posterior incision site is closed and well healed There is no need for continued routine follow up with Chary she may follow up on an as-needed basis. Kurt Leone MD,PhD [facility] Coding Level of Care Code Global (07357) Diagnoses Lumbar disc herniation with radiculopathy M51.16
== END 2025-04-01 10:49 | disposition home or self-care (01) ==
LOC: HO.HNS 10:18
PROVIDERS: PCP Internal Medicine; Visit Provider Physician Assistant
DX: M51.16 Intervertebral disc disorders with radiculopathy, lumbar region (principal)
CPT/HCPCS: 99024

== ENCOUNTER → 2025-04-01 10:17 | Outpatient (BNVA) | payer MEDICARE, SELFPAY | PROVIDERS: PCP Internal Medicine; Visit Provider Physician Assistant | DX: Z47.89 Encounter for other orthopedic aftercare (principal); M51.16 Intervertebral disc disorders with radiculopathy, lumbar region | CPT/HCPCS: 99212 ==